=== PATIENT | male | born 1940 | race Caucasian/White ===

== ENCOUNTER 2020-01-22 09:29 | Inpatient (IN) | payer MEDICARE, OTHER ==
[~2020-01-22] VITALS: Ht 175.3 cm; Wt 86.2 kg
[2020-01-22] VITALS (40 sets, daily range): BP systolic 74–133; BP diastolic 41–89
--- NOTE | 2020-01-22 09:29 | NUR ---
PT BIB PRIVATE AMBULANCE FROM [facility] FOR FURTHER EVALUATION OF A "MASS IN THE LUNG AND R/O COVID 19. PT PLACED IN ROOM 3 PER COVID PRECAUTIONS PER HOSITAL POLICIES. PT CAME WITH O2 VIA NC, SATTING 99%. PT BREATHING USING ABDOMINAL MUSCLES. PT NON-VERBAL, RESPONSIVE WITH PAIN FUL STIMULI.
[2020-01-22] MEDS ORDERED: IV NORMAL SALINE 500 ML BAG IV ONE (10:15)
[2020-01-22 10:18] LABS: EOSINOPHILS % (AUTO) 0.7 % (0.0-7.0); HEMOGLOBIN 12.8 g/dL (12.5-16.3); LYMPHOCYTES # (AUTO) 0.9 K/uL (20.0-40.0); LYMPHOCYTES % (AUTO) 25.3 % (20.5-51.5); MEAN CORPUSCULAR HGB CONC 33 g/dL (32.5-36.3); MEAN CORPUSCULAR VOLUME 91.4 fL (73.0-96.2); MONOCYTES # (AUTO) 0.2 K/uL (2.0-10.0); MONOCYTES % (AUTO) 6.1 % (0.0-11.0); NEUTROPHILS # (AUTO) 2.4 K/uL (1.8-8.9); NEUTROPHILS % (AUTO) 66.9 % (38.5-71.5); PLATELET COUNT (AUTO) 74 K/uL (152-348); RED BLOOD CELL COUNT(AUTO) 4.27 MIL/uL (4.06-5.63); WHITE BLOOD COUNT (AUTO) 3.5 K/uL (3.6-10.2)
[2020-01-22 10:22] LABS: CREATININE 1.1 mg/dL (0.6-1.3); POTASSIUM 4.1 mmol/L (3.5-5.1)
[2020-01-22 10:33] LABS: BILIRUBIN,DIRECT 0.4 mg/dL (0.0-0.2); BILIRUBIN,TOTAL 1.1 mg/dL (0.2-1.0); TOTAL PROTEIN, SERUM 6.7 g/dL (6.4-8.2)
[2020-01-22 10:42] LABS: BAND % (MANUAL) 3 % (0-10); LYMPHOCYTES % (MANUAL) 24 % (20-40); MONOCYTES % (MANUAL) 6 % (2-10); NEUTROPHILS % (MANUAL) 67 % (42-75)
[2020-01-22] MEDS ORDERED: CEFTRIAXONE 1 G in IV DEXTROSE 5% 50 ML IV ONE (11:00)
[2020-01-22] MEDS ORDERED: AZITHROMYCIN IV 500 MG in IV DEXTROSE 5% 250 ML IV ONE (11:00)
[2020-01-22] MEDS ORDERED: ASPIRIN 300 MG RECTAL SUPP RC ONE ×2 (11:00→11:08)
[2020-01-22] MEDS ORDERED: AZITHROMYCIN 500MG/ D5W 250ML IVPB **ER PYXIS ONLY IV ONE (11:03)
[2020-01-22] MEDS ORDERED: CEFTRIAXONE /D5W 50ML IVPB **ER PYXIS IV ONE (11:04)
[2020-01-22 11:40] LABS: *BILIRUBIN,URIN NEGATIVE (NEGATIVE); *BLOOD, URINE 1+ (NEGATIVE); *CLARITY,URINE SLIGHTLY CLOUDY (CLEAR); *COLOR,URINE YELLOW (YELLOW); *KETONES,URINE NEGATIVE (NEGATIVE); LEUKOCYTE ESTERASE ,URINE NEGATIVE (NEGATIVE); NITRITE, URINE NEGATIVE (NEGATIVE); PH,URINE 5.5 (5.0-8.0); UGLUCOSE NEGATIVE (NEGATIVE)
[2020-01-22] MEDS: HYDROXYCHLOROQUINE SULFATE 200 MG TABLET PO SCH ×3 (11:45→17:36)
[2020-01-22] MEDS ORDERED: ACETAMINOPHEN 325 MG TABLET PO PRN (11:45)
[2020-01-22] MEDS ORDERED: ONDANSETRON 4 MG/2 ML VIAL IV PRN (11:45)
[2020-01-22 11:55] LABS: WBC,URINE 0-3 /HPF (0-3)
[2020-01-22 11:59] LABS: SQUAMOUS EPITHELIAL CELL,UR MODERATE /HPF (NONE SEEN)
[2020-01-22 12:02] LABS: MUCUS,URINE FEW /LPF (0-FEW)
--- NOTE | 2020-01-22 12:05 | NUR ---
transfered the pt to ccu per covid protocol.
[2020-01-22 12:07] LABS: BACTERIA,URINE NONE SEEN /HPF (NONE SEEN)
--- NOTE | 2020-01-22 12:18 | NUR ---
Patient in from E.R. to ccu room 2. Patient in with HR of 115, saturation on room air of 88%. pt. placed on 2LNC. sbp 118/85. RR of 18-25. temp of 98.9
--- NOTE | 2020-01-22 13:20 | NUR ---
PT ORALLY INTUBATED BY DR. BRIGHT WITH A SIZE 7.5 ETT WITHOUT COMPLICATION. ETT SECURED WITH ANCHOR-FAST APPROX. 25 CM AT THE LIP. PPE USED. PT PLACED ON A ERICKSON VENT. VENT SETTINGS GIVEN BY DR. BRIGHT OF A/C 28, 450, PEEP +10, AND 100% FIO2. VENT CHANGES MADE POST ABG RESULTS PER DR. BRIGHT, PT IS CURRENTLY ON A/C 24, 450, PEEP +10, AND 60% FIO2. PT IS TOLERATING VENT SETTINGS WELL, NO RESP. DISTRESS NOTED. BVM AT BEDSIDE. VENT PLUGGED INTO RED OUTLET. SPUTUM SPECIMEN COLLECTED. WILL CONTINUE TO MONITOR.
[2020-01-22] MEDS ORDERED: PROPOFOL 100 ML ONE (13:25)
[2020-01-22] MEDS ORDERED: NOREPINEPHRINE BITARTRATE 8 MG in IV NORMAL SALINE 242 ML IV PRN ×2 (13:30→14:00)
[2020-01-22] MEDS ORDERED: PHENYLEPHRINE IV 50 MG in IV NORMAL SALINE 245 ML IV PRN ×4 (13:30)
[2020-01-22] MEDS: NOREPINEPHRINE BITARTRATE 8 MG in IV NORMAL SALINE 242 ML IV PRN (13:39)
[2020-01-22 13:40] LABS: THYROID STIMULATING HORMONE 1.376 mIU/mL (0.358-3.740)
[2020-01-22 13:49] LABS: ABG BASE EXCESS -0.6 mmol/L; ABG PH 7.484 (7.350-7.450); ABG PO2 252.6 mmHg (75.0-100.0); ABG SITE LEFT RADIAL; ABG TOTAL HEMOGLOBIN 11.8 G/dL (13.5-18.0); MetHb 0.2 % (0.0-1.5); O2Hb 98.7 % (94.0-97.0); VENT MODE VENT - A/C; VT, ABG 450 mL
[2020-01-22] MEDS ORDERED: PROPOFOL 100 ML IV PRN (14:00)
--- NOTE | 2020-01-22 14:10 | NUR ---
A call to radiology to follow up with NG tube placement reading results. the undersignee spoke with ( Ilana/Ravi) who stated will call radiologist and will call. Awaiting NG tub placement.
[2020-01-22] MEDS ORDERED: JEVITY 1.2 1000 ML LIQUID NG PRN (14:30)
--- NOTE | 2020-01-22 14:30 | NUR ---
At 1320 with intubation team at bedside, patient intubated by DR. Herman Clark. Patient intubated ETT size 7.5 LL25, initial vent settings of A/C 24, tv 450, 100% FIO2 PEEP of 10. to be follow up by ABShreyas wang an hour. Propofol drip started and titrated with Dr's orders and left running at 75mcg/g/min. Pt's sbp down and started on levophed as ordered. NG tube to right nares at this time as well. AT 1340 Central line to right femoral inserted by Dr. Sutton as well . Awaiting for X-ray results for NG placement. Addendum: 01/22/20 at 1540 by NOVA GUTIERREZ RN Initial vent rate of A/C 28 follow up with and ABG 20 min. post intubation vent setting changed to A/C 24, 450 tv, Peep 10 and 60% FIO2.
[2020-01-22] MEDS: PROPOFOL 100 ML IV PRN ×3 (15:07→21:08)
--- NOTE | 2020-01-22 15:42 | NUR ---
2nd call to radiology dept. for NG placement reading, at this time spoke with Tobin awaiting reading results.
[2020-01-22] MEDS: IV D5 1/2 NS 1000 ML 1,000 ML IV PRN (17:21)
[2020-01-22 17:43] LABS: ABG BASE EXCESS 3.4 mmol/L; ABG HCO3 28.5 mmol/L; ABG PCO2 45.6 mmHg (35.0-45.0); ABG PH 7.414 (7.350-7.450); ABG PO2 211.8 mmHg (75.0-100.0); ABG SITE LEFT BRACHIAL; ABG TOTAL HEMOGLOBIN 12.7 G/dL (13.5-18.0); COHb 1.3 % (0.5-1.5); MetHb 0.2 % (0.0-1.5); O2Hb 98.4 % (94.0-97.0); VENT MODE VENT - A/C; VT, ABG 450 mL
--- NOTE | 2020-01-22 18:06 | NUR ---
Vent: setting changed to A/C 24, TV 450, FIO2 40%, PEEP +10. post 2nd ABG results notified to attending physician.
--- NOTE | 2020-01-22 18:20 | NUR ---
A call to pulmonary services, and report given to Dr. Bautista currently fuel verification technician for Dr. Cisneros. orders to titrate fio2 to maintain saturation above 94% received.
--- NOTE | 2020-01-22 19:19 | NUR ---
A 2nd call from Pt's daughter Ms. Ferrer she was briefly updated of pt's care plan, and her phone number given to Attending Dr. Sutton who was informed to call and update her of care plan.
[2020-01-22] MEDS ORDERED: SUCCINYLCHOLINE CHLORIDE 200 MG/10 ML VIAL IV ONE (19:30)
[2020-01-22] MEDS ORDERED: ETOMIDATE 20 MG/10 ML VIAL IV ONE (19:30)
--- NOTE | 2020-01-22 19:30 | NUR ---
Report received. Patient admitted today from [facility] DX: COVID-19. S/P intubation and to mechanical ventilator with settings: AC=24, FIO2=40%, PEEP=10 and TV=270xg. Sat above 96%. Sedated with Diprivan drip at 75 mcg/kg/min via R femoral TLC. On contact+droplet isolation. On Levophed rip for BP support. Assessment done. Addendum: 01/22/20 at 2306 by VALERI JEWELL RN Amended: Links added. Addendum: 01/22/20 at 2316 by VALERI JEWELL RN Amended: Links added. Addendum: 01/22/20 at 2316 by VALERI JEWELL RN Amended: Links added. Addendum: 01/22/20 at 2316 by VALERI JEWELL RN Amended: Links added. Addendum: 01/22/20 at 2316 by VALERI JEWELL RN Amended: Links added. Addendum: 01/22/20 at 2317 by VALERI JEWELL RN Amended: Links added. Addendum: 01/22/20 at 2318 by VALERI JEWELL RN Amended: Links added. Addendum: 01/22/20 at 2318 by VALERI JEWELL RN Amended: Links added. Addendum: 01/22/20 at 2318 by VALERI JEWELL RN Amended: Links added.
--- NOTE | 2020-01-22 21:00 | NUR ---
Morphine order received from Dr. Clark. Patient with occasional grimacing and bucking the vent. Qsux=550.3 orally. Medicated with Tylenol via NGT and Morphine IV. Cooling measures initiated. Addendum: 01/22/20 at 2316 by VALERI JEWELL RN Amended: Links added. Addendum: 01/22/20 at 2317 by VALERI JEWELL RN Amended: Links added. Addendum: 01/22/20 at 2317 by VALERI JEWELL RN Amended: Links added. Addendum: 01/22/20 at 2316 by VALERI JEWELL RN Amended: Links added. Addendum: 01/22/20 at 2316 by VALERI JEWELL RN Amended: Links added. Addendum: 01/22/20 at 8 by VALERI JEWELL RN Amended: Links added. Addendum: 01/22/20 at 2317 by VALERI JEWELL RN Amended: Links added. Addendum: 01/22/20 at 2317 by VALERI JEWELL RN Amended: Links added.
[2020-01-22] MEDS: ACETAMINOPHEN 650 MG/20.3 ML LIQUID UDC NG PRN (21:09)
[2020-01-22] MEDS: MORPHINE SULFATE 4 MG/1 ML DISP.SYRIN IV PRN (21:12)
[2020-01-23] VITALS (96 sets, daily range): BP systolic 73–129; BP diastolic 43–71
--- NOTE | 2020-01-23 00:30 | NUR ---
Bath and am care given. Patient agitated, tachypneic and tachycardic during care. Medicated with Morphine IV. Diprivan and Levophed drips titrated. Addendum: 01/23/20 at 0143 by VALERI JEWELL RN Amended: Links added.
[2020-01-23] MEDS: PROPOFOL 100 ML IV PRN ×8 (00:32→21:10)
[2020-01-23] MEDS: MORPHINE SULFATE 4 MG/1 ML DISP.SYRIN IV PRN (00:41)
[2020-01-23] MEDS: Z GUARD REMEDY PASTE 57 GM TUBE TOP PRN (02:25)
--- NOTE | 2020-01-23 03:00 | NUR ---
Ivkd=613.6. Cooling measures. Tylenol given vis NGT. Will monitor.
[2020-01-23] MEDS: NOREPINEPHRINE BITARTRATE 8 MG in IV NORMAL SALINE 242 ML IV PRN (03:03)
[2020-01-23] MEDS: ACETAMINOPHEN 650 MG/20.3 ML LIQUID UDC NG PRN ×2 (03:09→11:25)
[2020-01-23] MEDS: OSMOLITE 1.2 CAL 1,000 ML LIQUID GT PRN ×2 (04:00→10:21)
[2020-01-23 04:50] LABS: BASOPHILS # (AUTO) 0.1 K/uL (0.0-8.0); BASOPHILS % (AUTO) 0.7 % (0.0-2.0); EOSINOPHILS % (AUTO) 0.4 % (0.0-7.0); HEMATOCRIT 37.6 % (36.7-47.1); HEMOGLOBIN 12.3 g/dL (12.5-16.3); LYMPHOCYTES # (AUTO) 1.7 K/uL (20.0-40.0); LYMPHOCYTES % (AUTO) 21.7 % (20.5-51.5); MEAN CORPUSCULAR HEMOGLOBIN 30.2 uug (23.8-33.4); MEAN CORPUSCULAR HGB CONC 33 g/dL (32.5-36.3); MEAN CORPUSCULAR VOLUME 91.9 fL (73.0-96.2); MONOCYTES # (AUTO) 0.6 K/uL (2.0-10.0); MONOCYTES % (AUTO) 7.2 % (0.0-11.0); NEUTROPHILS # (AUTO) 5.6 K/uL (1.8-8.9); PLATELET COUNT (AUTO) 130 K/uL (152-348); RED BLOOD CELL COUNT(AUTO) 4.09 MIL/uL (4.06-5.63); WHITE BLOOD COUNT (AUTO) 8.1 K/uL (3.6-10.2)
[2020-01-23 05:12] LABS: ALANINE AMINOTRANSFERASE 139 U/L (16-63); ALKALINE PHOSPHATASE 104 U/L (50-136); ASPARTATE AMINOTRANSFERASE 123 U/L (15-37); BILIRUBIN,TOTAL 1.2 mg/dL (0.2-1.0); CARBON DIOXIDE 28 mmol/L (21-32); CHLORIDE 110 mmol/L (98-107); CHOLESTEROL 136 mg/dL (<200); CREATININE 2.7 mg/dL (0.6-1.3); FERRITIN 860 ng/mL (26-388); GLUCOSE 172 mg/dL (74-106); HDL CHOLESTEROL 19 mg/dL (40-60); MAGNESIUM 2.5 mg/dL (1.8-2.4); PHOSPHOROUS 5.7 mg/dL (2.5-4.9); POTASSIUM 4.7 mmol/L (3.5-5.1); TOTAL PROTEIN, SERUM 6.5 g/dL (6.4-8.2); TRIGLYCERIDES 158 MG/DL (30-150); UREA NITROGEN, BLOOD 52 mg/dL (7-18)
[2020-01-23] MEDS: HYDROXYCHLOROQUINE SULFATE 200 MG TABLET PO SCH (05:28)
[2020-01-23] MEDS: IV D5 1/2 NS 1000 ML 1,000 ML IV PRN ×2 (05:28→17:16)
--- NOTE | 2020-01-23 07:00 | NUR ---
Remains on Levophed and Diprivan drips. Saturations above 96% on same vent settings. Isolation for COVID-19 maintained. Addendum: 01/23/20 at 0724 by VALERI JEWELL RN Amended: Links added.
--- NOTE | 2020-01-23 10:10 | NUR ---
Pulmonary services, Dr. Cisneros in the unit to see and examine patient, full report given see order hx.
[2020-01-23] MEDS: HEPARIN SODIUM,PORCINE 5,000 UNITS/ML VIAL SQ SCH ×2 (10:40→21:10)
[2020-01-23] MEDS: FAMOTIDINE. 20 MG/2 ML VIAL IV SCH (10:40)
[2020-01-23] MEDS ORDERED: LORAZEPAM 2 MG/1 ML VIAL IV PRN (11:15)
[2020-01-23] MEDS ORDERED: AZITHROMYCIN 250 MG TABLET PO SCH (11:45)
[2020-01-23] MEDS: AZITHROMYCIN 250 MG TABLET PO SCH (11:57)
[2020-01-23] MEDS: PROTEIN SUPPLEMENT (PROSTAT) 30 ML LIQUID PO SCH ×2 (11:58→16:00)
--- NOTE | 2020-01-23 12:44 | NUR ---
A call from one of the daughters to be updated of pt's condition and care plan. At this time Dr. Jones was called to be notified to give them a call and discussed care plan as requested by Ms. Hansen.
--- NOTE | 2020-01-23 15:52 | NUR ---
A call to attending to notify malfunction of NG-T. and as recommended tube pull back about 3-5cm since x-ray results this morning show ett tip been in the stomach. but 20 minutes later malfunctioning continue. Md call to be notified awaiting call back.
[2020-01-23] MEDS ORDERED: TOCILIZUMAB 400 MG in IV NORMAL SALINE 80 ML IV ONE (16:15)
--- NOTE | 2020-01-23 16:24 | NUR ---
Pt received orally intubated with a 7.5 ETtube, ~25cm lipline. He is sedated and in stable condition on ordered vent settings of AC 24, Vt 450, Peep +10, @ 40% FiO2. Airway is patent and secured with anchorfast. Tube locations changed througout shift to prevent abrasions. Alarm parameters checked and are on/audible. Ambu bag at bedside. PPE used for Positive Covid-19 results.Will continue to monitor.
--- NOTE | 2020-01-23 16:30 | NUR ---
Due to high residual TF off at this time. Attending notified. Addendum: 01/23/20 at 1650 by NOVA GUTIERREZ RN residuals of 250cc mix of greenish and stomach fluid.
[2020-01-23] MEDS: HYDROXYCHLOROQUINE 200 MG/8 ML SUSPENSION NG SCH (17:04)
[2020-01-23 17:36] LABS: *BILIRUBIN,URIN 2+ (NEGATIVE); *CLARITY,URINE TURBID (CLEAR); *COLOR,URINE Brown (YELLOW); *KETONES,URINE NEGATIVE (NEGATIVE); LEUKOCYTE ESTERASE ,URINE NEGATIVE (NEGATIVE); NITRITE, URINE NEGATIVE (NEGATIVE); UGLUCOSE NEGATIVE (NEGATIVE)
[2020-01-23 17:48] LABS: *BLOOD, URINE 1+ (NEGATIVE)
[2020-01-23 17:49] LABS: SQUAMOUS EPITHELIAL CELL,UR FEW /HPF (NONE SEEN); WBC,URINE 0-3 /HPF (0-3)
[2020-01-23 17:50] LABS: MUCUS,URINE MODERATE /LPF (0-FEW); URINE AMORPHOUS URATE MANY /HPF
[2020-01-23 18:00] LABS: *URINE TOTAL PROTEIN RANDOM 234.7 mg/dL (<150/24HR)
[2020-01-23] MEDS ORDERED: HYDROXYCHLOROQUINE SULFATE 200 MG TABLET PO SCH (18:00)
--- NOTE | 2020-01-23 18:32 | NUR ---
Attending physician Robert Ayala in the unit to see and examine patient, full report given. Orders to continue with care plan received.
--- NOTE | 2020-01-23 19:00 | NUR ---
Pt received orally intubated with a 7.5 ET tube, secured at 25cm lip line via anchor fast. Vent settings of AC 24, Vt 450, Peep +10, Fio2 at 40%. Tube locations changed throughout shift to prevent abrasions. Vent checked, Alarms working well and audible. Ambu bag at bedside. PPE used for Positive Covid-19 results.Will continue to monitor.
--- NOTE | 2020-01-23 19:45 | NUR ---
rounds made patient in bed ,orally intubated on ac of 24 tv fio2 40% peep 10,sedated on propofol drip when off sedation ( sedation vacation ) patient open eyes and moved head form side to side and moved extremities but doesn't follow commands. back on sedation of 75 mcg/kg/min .Levophed drip in progress for bp support to keep sbp >90 mm/hg.continue to monitor bp q15 minutes . f/c to bsd . off tube feeding c/o high residual >250 ML at per day shift RN AWARE .continue to monitor v/s and levels of comfort and to conatinue to observed special droplet/contact ISOLATION + COVID .
--- NOTE | 2020-01-23 22:00 | NUR ---
turned and reposition patient ,suction via ett and via mouth , hob up . continue to monitor v/s and levels of comfort .
[2020-01-24] VITALS (94 sets, daily range): BP systolic 81–124; BP diastolic 42–82
[2020-01-24] MEDS: PROPOFOL 100 ML IV PRN ×8 (00:04→21:17)
--- NOTE | 2020-01-24 04:00 | NUR ---
am care done changed soiled linens and gown . oral care and f/c done turned and reposition patient .am labs collected .
[2020-01-24 04:44] LABS: BASOPHILS % (AUTO) 0.8 % (0.0-2.0); EOSINOPHILS # (AUTO) 0.1 K/uL (0.0-0.7); EOSINOPHILS % (AUTO) 1.5 % (0.0-7.0); HEMATOCRIT 31.3 % (36.7-47.1); HEMOGLOBIN 10.3 g/dL (12.5-16.3); LYMPHOCYTES # (AUTO) 0.8 K/uL (20.0-40.0); LYMPHOCYTES % (AUTO) 16.2 % (20.5-51.5); MEAN CORPUSCULAR HEMOGLOBIN 30.3 uug (23.8-33.4); MEAN CORPUSCULAR HGB CONC 33 g/dL (32.5-36.3); MEAN CORPUSCULAR VOLUME 92.3 fL (73.0-96.2); MONOCYTES # (AUTO) 0.4 K/uL (2.0-10.0); MONOCYTES % (AUTO) 7.4 % (0.0-11.0); NEUTROPHILS # (AUTO) 3.7 K/uL (1.8-8.9); NEUTROPHILS % (AUTO) 74.1 % (38.5-71.5); PLATELET COUNT (AUTO) 81 K/uL (152-348); RED BLOOD CELL COUNT(AUTO) 3.39 MIL/uL (4.06-5.63)
[2020-01-24 05:12] LABS: ALANINE AMINOTRANSFERASE 88 U/L (16-63); ALKALINE PHOSPHATASE 87 U/L (50-136); ASPARTATE AMINOTRANSFERASE 75 U/L (15-37); BILIRUBIN,TOTAL 1.1 mg/dL (0.2-1.0); CARBON DIOXIDE 26 mmol/L (21-32); CHLORIDE 107 mmol/L (98-107); CREATININE 5.1 mg/dL (0.6-1.3); FERRITIN 577 ng/mL (26-388); GLUCOSE 120 mg/dL (74-106); MAGNESIUM 2.3 mg/dL (1.8-2.4); PHOSPHOROUS 6.9 mg/dL (2.5-4.9); POTASSIUM 4.8 mmol/L (3.5-5.1); TOTAL PROTEIN, SERUM 5.7 g/dL (6.4-8.2); UREA NITROGEN, BLOOD 71 mg/dL (7-18)
[2020-01-24] MEDS: IV D5 1/2 NS 1000 ML 1,000 ML IV PRN ×2 (06:18→17:49)
[2020-01-24] MEDS: HYDROXYCHLOROQUINE 200 MG/8 ML SUSPENSION NG SCH ×3 (06:20→17:39)
[2020-01-24 06:23] LABS: LYMPHOCYTES % (MANUAL) 23 % (20-40); MONOCYTES % (MANUAL) 4 % (2-10); NEUTROPHILS % (MANUAL) 73 % (42-75)
--- NOTE | 2020-01-24 07:30 | NUR ---
recieved pt lying in bed with hob up 35degrees. pt is sedated on propofol drip at 70mcg/.kg/min via right femoral line.
--- NOTE | 2020-01-24 08:00 | NUR ---
HR IS SR-SR WITH OCCASSIONAL PAC'S. ON LEVOPHED DRIP RUNNING TO MAIINTAIN BP, MAIN IVF IS INFUSING WELL. TEMP IS 99.7F. ETT INTACT AND CONNECTED TO MECHANICAL VENT WITH A SETTING OF 24, FIO2-40%,VT-459 WITH A PEEP OF 10. SATURATION IS 100%. VERY MINIMAL SECRETIONS. FOLEYCATHETER INTACT, URINE OUTPUT IS SCANTY AND VERY CONCENTRATED CAIN. IS AWARE.
[2020-01-24 08:24] LABS: ABG BASE EXCESS -5.9 mmol/L; ABG HCO3 19.7 mmol/L; ABG PCO2 39.2 mmHg (35.0-45.0); ABG PH 7.319 (7.350-7.450); ABG PO2 158.8 mmHg (75.0-100.0); ABG SITE LEFT BRACHIAL; ABG TOTAL HEMOGLOBIN 9.5 G/dL (13.5-18.0); COHb 0.5 % (0.5-1.5); O2Hb 98.9 % (94.0-97.0); VENT MODE VENT - A/C; VT, ABG 450 mL
[2020-01-24] MEDS: FAMOTIDINE. 20 MG/2 ML VIAL IV SCH (08:26)
[2020-01-24] MEDS: PROTEIN SUPPLEMENT (PROSTAT) 30 ML LIQUID PO SCH ×3 (08:27→16:25)
--- NOTE | 2020-01-24 08:39 | NUR ---
PT RECEIVED ON VENT WITH SETTINGS ON AC24/VT450/40%/+10 PEEP. 7.5 ETT PROPERLY SECURED AND AIRWAY PATENT. VENT ALARMS SET AND AUDIBLE. ABG DONE. RESULTS NON CRITICAL AND VIEWABLE ON [employer]. WILL CONTINUE T MONITOR.
[2020-01-24] MEDS ORDERED: HEPARIN SODIUM,PORCINE 5,000 UNITS/ML VIAL SQ SCH (09:00)
[2020-01-24] MEDS ORDERED: ASPIRIN 81 MG TAB.CHEW NG SCH ×2 (09:00)
--- NOTE | 2020-01-24 09:00 | NUR ---
SEEN AND EXAMINED BY DR TRINIDAD WITH NEW ORDERS.
[2020-01-24 09:11] LABS: HEPATITIS A AB, IgM Negative (Negative); HEPATITIS B SURFACE AG Negative (Negative)
--- NOTE | 2020-01-24 10:00 | NUR ---
NGT INTACT, JEVITY TUBE FEEDING STARTED AT 20ML/HR. NO RESIDUALS NOTED. NO BM NOTED. BOWEL SOUND IS PRESENT.
--- NOTE | 2020-01-24 10:18 | NUR ---
0945 VENT SETTING CHANGES MADE. FIO2 35% AND PEEP TO 8
[2020-01-24] MEDS ORDERED: BUMETANIDE INJ 8 MG in IV DEXTROSE 5% 48 ML IV ONE (10:30)
--- NOTE | 2020-01-24 11:29 | NUR ---
1113 VENT SETTING CHANGES MADE. FIO2 30% AND PEEP TO 5
--- NOTE | 2020-01-24 12:00 | NUR ---
SEEN AND EXAMINED BY DR OSBORNE WITH NEW ORDERS. BUMEX DRIP STARTED AT ML/HR.
[2020-01-24] MEDS: AZITHROMYCIN 250 MG TABLET PO SCH (12:49)
[2020-01-24] MEDS: ACETAMINOPHEN 650 MG/20.3 ML LIQUID UDC NG PRN ×2 (12:49→17:11)
--- NOTE | 2020-01-24 16:00 | NUR ---
PM CARE RENDERED. NO CHANGE IN STATUS. PEEP DOWN TO 5 TOLERATED WELL. ORAL CARE DONE. TEMP IS 100.4F. MEDICATED WITH TYLENOL 650MG VIA NGT. NO APPARENT DISTRESS NOTED.
--- NOTE | 2020-01-24 17:08 | NUR ---
1707 FIO2 TITRATED DOWN TO 28% AND PEEP TO 5 Addendum: 01/24/20 at 1709 by CHRISTIAN VALLE RT 1707 FIO2 TITRATED DOWN TO 28%
[2020-01-24] MEDS: NOREPINEPHRINE BITARTRATE 8 MG in IV NORMAL SALINE 242 ML IV PRN ×2 (17:50→21:18)
[2020-01-24] MEDS: OSMOLITE 1.2 CAL 1,000 ML LIQUID GT PRN (17:53)
--- NOTE | 2020-01-24 20:00 | NUR ---
rounds made patient in ac 24/450/28% peep of 5 ,suction via ett very minimal secretions,oral care done . sedated on propofol when off sedation patient moved but very slow and doesn't follow commands facial grimace noted ,back on sedation . Levophed drip in progress at 0.02mcg/kg/min for bp support to keep sbp >90 mm/hg .f/c to bsd continue to monitor i and o and patient on bumex drip . continue to monitor v/s and levels of comfort .
--- NOTE | 2020-01-24 21:30 | NUR ---
turned and reposition patient offloaded back with pillows , hob up and elevated upper and lower extremities .
[2020-01-25] VITALS (48 sets, daily range): BP systolic 101–142; BP diastolic 45–90
[2020-01-25] MEDS: PROPOFOL 100 ML IV PRN ×6 (00:38→22:12)
[2020-01-25] MEDS: MORPHINE SULFATE 4 MG/1 ML DISP.SYRIN IV PRN (02:58)
--- NOTE | 2020-01-25 04:00 | NUR ---
am care done ,bath patient changed soiled linens and gown .noted left buttocks redness DTI ,applied z guard with hydrogel and cover with Mepilex placed wound care consult .turned and reposition .
[2020-01-25 05:11] LABS: CARBON DIOXIDE 21 mmol/L (21-32); CHLORIDE 103 mmol/L (98-107); CREATININE 6.9 mg/dL (0.6-1.3); GLUCOSE 109 mg/dL (74-106); MAGNESIUM 2.1 mg/dL (1.8-2.4); POTASSIUM 5.1 mmol/L (3.5-5.1)
[2020-01-25 05:18] LABS: BASOPHILS % (AUTO) 0.7 % (0.0-2.0); EOSINOPHILS # (AUTO) 0.1 K/uL (0.0-0.7); EOSINOPHILS % (AUTO) 2.1 % (0.0-7.0); HEMATOCRIT 28.9 % (36.7-47.1); HEMOGLOBIN 9.8 g/dL (12.5-16.3); LYMPHOCYTES # (AUTO) 0.7 K/uL (20.0-40.0); LYMPHOCYTES % (AUTO) 12.8 % (20.5-51.5); MEAN CORPUSCULAR HEMOGLOBIN 31.3 uug (23.8-33.4); MEAN CORPUSCULAR HGB CONC 34 g/dL (32.5-36.3); MEAN CORPUSCULAR VOLUME 92.2 fL (73.0-96.2); MONOCYTES # (AUTO) 0.3 K/uL (2.0-10.0); MONOCYTES % (AUTO) 5.4 % (0.0-11.0); NEUTROPHILS # (AUTO) 4.2 K/uL (1.8-8.9); PLATELET COUNT (AUTO) 75 K/uL (152-348); RED BLOOD CELL COUNT(AUTO) 3.14 MIL/uL (4.06-5.63); WHITE BLOOD COUNT (AUTO) 5.3 K/uL (3.6-10.2)
[2020-01-25] MEDS: HYDROXYCHLOROQUINE 200 MG/8 ML SUSPENSION NG SCH ×2 (05:19→17:00)
[2020-01-25 05:25] LABS: UREA NITROGEN, BLOOD 89 mg/dL (7-18)
[2020-01-25 06:05] LABS: EOSINOPHILS % (MANUAL) 1 % (0-8); LYMPHOCYTES % (MANUAL) 14 % (20-40); MONOCYTES % (MANUAL) 3 % (2-10); NEUTROPHILS % (MANUAL) 81 % (42-75)
[2020-01-25] MEDS: PROTEIN SUPPLEMENT (PROSTAT) 30 ML LIQUID PO SCH ×3 (07:53→17:00)
[2020-01-25] MEDS: FAMOTIDINE. 20 MG/2 ML VIAL IV SCH (07:53)
[2020-01-25] MEDS: IV D5 1/2 NS 1000 ML 1,000 ML IV PRN ×2 (08:09→22:12)
[2020-01-25 09:13] LABS: ABG BASE EXCESS -6.5 mmol/L; ABG HCO3 19.3 mmol/L; ABG PCO2 39.5 mmHg (35.0-45.0); ABG PH 7.306 (7.350-7.450); ABG PO2 103.8 mmHg (75.0-100.0); ABG SITE RIGHT RADIAL; ABG TOTAL HEMOGLOBIN 11.3 G/dL (13.5-18.0); COHb 1.1 % (0.5-1.5); MetHb 0.4 % (0.0-1.5); O2Hb 96.7 % (94.0-97.0); VENT MODE VENT - A/C; VT, ABG 450 mL
--- NOTE | 2020-01-25 10:30 | NUR ---
DOCTOR VARGAS IN THE UNIT. SPOKE TO DOCTOR LUGO AND HE WILL SPEAK TO DAUGHTER TODAY REGARDING DIALYSIS INSERTION.
--- NOTE | 2020-01-25 11:00 | NUR ---
WOUND CARE NURSE IN THE UNIT TO EVALUATE PATIENT.
--- NOTE | 2020-01-25 11:10 | NUR ---
WOUND CARE CONSULT: REVIEWED NURSING DOCUMENTATION INCLUDING PHOTO WHICH SHOWS LEFT BUTTOCK DISCOLORATION. RECOMMENDATIONS MADE FOR SKIN PROTECTION. DISCUSSED WITH NURSING STAFF. PT ON FIRST STEP [facility]. WILL SEE PRN. [place]FIELD IN AGREEMENT WITH PLAN OF CARE. Addendum: 01/25/20 at 1114 by ARRON ATKINSON RN Amended: Links added.
--- NOTE | 2020-01-25 13:00 | NUR ---
DOCTOR NATE IN THE UNIT.
[2020-01-25] MEDS: AZITHROMYCIN 250 MG TABLET PO SCH (13:45)
--- NOTE | 2020-01-25 15:00 | NUR ---
JUDEEN IN THE UNIT REVIEWING PATIENT.
--- NOTE | 2020-01-25 19:45 | NUR ---
rounds made patient in bed ,orally intubated on ac 24/450/28% peep 5 ,sedated on propofol . very minimal /small secretion patricia to becker color . hob , when off sedation facial grimaces and withdraws to pain . moved extremities upper and lower extremities very slow and weak ,applied soft wrist restraints for safety .off Levophed drip continue to monitor v/s .NGT on Osmolite at 20 ml/hr continue to monitor flushed aspiration precaution observed.f/c to bsd oliguric aware for possible HD as per day RN .
--- NOTE | 2020-01-25 22:12 | NUR ---
Pt received orally intubated with 7.5 ETTube, 25cm @ lipline. Pt sedated and is on stable condition. Pt on Bustamante vent with settings of AC 24, 450 VT, +5 peep, FIO2 28%. Alarms checked and audible. Ambubag @ bedside. PPE used for positive covid isolation precautions. Pt received orally intubated with a 7.5 ETtube, ~25cm lipline. He is sedated and in stable condition on ordered vent settings of AC 24, Vt 450, Peep +10, @ 40% FiO2. Airway is patent and secured with anchorfast. Tube locations changed througout shift to prevent abrasions. Alarm parameters checked and are on/audible. Ambu bag at bedside. PPE used for Positive Covid-19 results.Will continue to monitor.
--- NOTE | 2020-01-25 22:30 | NUR ---
turned and reposition patient ,offloaded back /buttocks with pillows .bilateral heels off bed with pillows.suction patient very small secretions. oral care done .flushed NGT to tolerating tube feedings.
[2020-01-26] VITALS (34 sets, daily range): BP systolic 89–145; BP diastolic 48–82
[2020-01-26] MEDS: MORPHINE SULFATE 4 MG/1 ML DISP.SYRIN IV PRN (00:25)
--- NOTE | 2020-01-26 00:36 | NUR ---
given prn morphine noted shallow breathing on the vent ac24 patient breathing 27 and deep . continue to monitor comfort level.
[2020-01-26] MEDS: PROPOFOL 100 ML IV PRN ×5 (03:18→21:19)
--- NOTE | 2020-01-26 04:15 | NUR ---
am labs collected and send, am care done bath patient ,applied z guard mixed with hydrogel to right and left buttocks and cover with Mepilex .oral care and f/c done turned and reposition
--- NOTE | 2020-01-26 05:00 | NUR ---
temp 100.3 orally given prn Tylenol via the ngt flushed ngt .
[2020-01-26] MEDS: HYDROXYCHLOROQUINE 200 MG/8 ML SUSPENSION NG SCH ×2 (05:04→17:10)
--- NOTE | 2020-01-26 05:14 | NUR ---
portable chest xray done by dietetic technician at b/s .
[2020-01-26] MEDS: ACETAMINOPHEN 650 MG/20.3 ML LIQUID UDC NG PRN ×3 (05:17→21:19)
[2020-01-26 05:26] LABS: BASOPHILS % (AUTO) 0.4 % (0.0-2.0); EOSINOPHILS % (AUTO) 0.6 % (0.0-7.0); HEMATOCRIT 29.6 % (36.7-47.1); HEMOGLOBIN 9.8 g/dL (12.5-16.3); LYMPHOCYTES # (AUTO) 0.7 K/uL (20.0-40.0); LYMPHOCYTES % (AUTO) 13.1 % (20.5-51.5); MEAN CORPUSCULAR HEMOGLOBIN 31.2 uug (23.8-33.4); MEAN CORPUSCULAR HGB CONC 33 g/dL (32.5-36.3); MEAN CORPUSCULAR VOLUME 93.7 fL (73.0-96.2); MONOCYTES # (AUTO) 0.4 K/uL (2.0-10.0); NEUTROPHILS # (AUTO) 4.4 K/uL (1.8-8.9); NEUTROPHILS % (AUTO) 78.9 % (38.5-71.5); RED BLOOD CELL COUNT(AUTO) 3.15 MIL/uL (4.06-5.63); WHITE BLOOD COUNT (AUTO) 5.5 K/uL (3.6-10.2)
[2020-01-26 05:32] LABS: PLATELET COUNT (AUTO) 87 K/uL (152-348)
[2020-01-26 05:39] LABS: CARBON DIOXIDE 20 mmol/L (21-32); CHLORIDE 106 mmol/L (98-107); GLUCOSE 125 mg/dL (74-106); MAGNESIUM 2.4 mg/dL (1.8-2.4)
[2020-01-26 05:46] LABS: POTASSIUM 6.3 mmol/L (3.5-5.1)
[2020-01-26 05:47] LABS: CREATININE 8.3 mg/dL (0.6-1.3); PHOSPHOROUS 11.9 mg/dL (2.5-4.9); UREA NITROGEN, BLOOD 100 mg/dL (7-18)
--- NOTE | 2020-01-26 06:09 | NUR ---
changed right femoral central line dressing done aseptically .
--- NOTE | 2020-01-26 06:15 | NUR ---
0615 called [facility] for abnormal labs no answer, 0645 called [facility] and spoked with IRAIDA DAWSON dictated chemistry results with orders for Kayexalate
[2020-01-26] MEDS ORDERED: SODIUM POLYSTYRENE SULFONATE 15 G/60 ML LIQUID UDC NG ONE (06:45)
[2020-01-26] MEDS: PROTEIN SUPPLEMENT (PROSTAT) 30 ML LIQUID PO SCH ×3 (08:01→17:10)
[2020-01-26] MEDS: FAMOTIDINE. 20 MG/2 ML VIAL IV SCH (08:01)
[2020-01-26] MEDS: OSMOLITE 1.2 CAL 1,000 ML LIQUID GT PRN (08:34)
[2020-01-26 09:30] LABS: ABG HCO3 17.7 mmol/L; ABG PCO2 46.5 mmHg (35.0-45.0); ABG PH 7.198 (7.350-7.450); ABG PO2 95.5 mmHg (75.0-100.0); ABG SITE RIGHT RADIAL; ABG TOTAL HEMOGLOBIN 10.9 G/dL (13.5-18.0); COHb 0.7 % (0.5-1.5); MetHb 0.2 % (0.0-1.5); O2Hb 95.7 % (94.0-97.0); VENT MODE VENT - A/C 24; VT, ABG 450 mL
[2020-01-26] MEDS: IV D5 1/2 NS 1000 ML 1,000 ML IV PRN (09:37)
--- NOTE | 2020-01-26 09:45 | NUR ---
PULMONARY SERVICES DR. TRINIDAD IN THE UNIT, FULL REPORT GIVEN. SEE ORDER HISTORY FOR NEW ORDERS. DR. TRINIDAD AT BEDSIDE ASSESSING PATIENT.
--- NOTE | 2020-01-26 09:50 | NUR ---
PT RHYTHM CHANGE EKG DONE STAT AND NOTIFIED DR. ANGEL. NEW ORDERS RECEIVED, SEE ORDER HISTORY FOR NEW ORDERS.
[2020-01-26] MEDS ORDERED: DEXTROSE 50% 50 ML DISP.SYRIN IV ONE (10:00)
[2020-01-26] MEDS ORDERED: SODIUM BICARBONATE 8.4% 50 MEQ/50 ML DISP.SYRIN IV ONE (10:00)
[2020-01-26] MEDS ORDERED: INSULIN REGULAR, HUMAN 300 UNIT/3 ML VIAL IV ONE (10:00)
[2020-01-26] MEDS ORDERED: CALCIUM GLUCONATE IV 1 GM in IV NORMAL SALINE 100 ML IV ONE (10:00)
--- NOTE | 2020-01-26 10:15 | NUR ---
CARDIOLOGY SERVICES DR. SULLIVAN IN THE UNIT, FULL REPORT GIVEN. SEE ORDER HISTORY FRO NEW ORDERS.
[2020-01-26] MEDS: SODIUM BICARBONATE 8.4% 100 MEQ in IV D5 1/2 NS 1000 ML 1,000 ML IV PRN ×2 (11:13→22:11)
[2020-01-26] MEDS: AZITHROMYCIN 250 MG TABLET PO SCH (12:19)
--- NOTE | 2020-01-26 13:00 | NUR ---
DR. SANCHEZ IN THE UNIT. DR SANCHEZ AT BEDSIDE IMPLANTING A TEMPORARY DIALYSIS CATHETER. TIME OUT DONE. DIALYSIS CATHETER PLACED ON LEFT GROIN. NO SIGNS OF COMPLICATION OR BLEEDING.
--- NOTE | 2020-01-26 14:30 | NUR ---
SENIOR APPLICATIONS ARCHITECT IN THE UNIT. PERFORMING DIALYSIS AT THE BEDSIDE.
[2020-01-26] MEDS: NOREPINEPHRINE BITARTRATE 8 MG in IV NORMAL SALINE 242 ML IV PRN (16:01)
--- NOTE | 2020-01-26 17:30 | NUR ---
DIALYSIS FINISHED 1500 OUT. PT PLACED BACK BACK ON LEVO BP RUNNING LOW 80'S. OTHERWISE NO OTHER COMPLICATIONS DURING HEMODIALYSIS.
[2020-01-26] MEDS ORDERED: METOCLOPRAMIDE HCL 10 MG/2 ML VIAL IV SCH (18:15)
[2020-01-26] MEDS: METOCLOPRAMIDE HCL 10 MG/2 ML VIAL IV SCH ×2 (18:27→21:58)
--- NOTE | 2020-01-26 21:11 | NUR ---
lab works is continuously being monitored everyday and being corrected when necessary , hd done today Addendum: 01/26/20 at 2110 by BLAIR TARANGO RN Amended: Keyona added. Addendum: 01/26/20 at 2112 by BLAIR TARANGO RN Amended: Keyona added. Addendum: 01/26/20 at 2113 by BLAIR TARANGO RN Amended: Links added.
--- NOTE | 2020-01-26 21:12 | NUR ---
temperature being monitored and being medicated for tmeperature > 100.0, cool bath given when necessary Addendum: 01/26/20 at 2112 by BLAIR TARANGO RN Amended: Links added. Addendum: 01/26/20 at 2113 by BLAIR TARANGO RN Amended: Links added.
--- NOTE | 2020-01-26 21:14 | NUR ---
levophed at 0.01 mcg was turned off , vs , maintained at desired rate Addendum: 01/26/20 at 2114 by BLAIR TARANGO RN Amended: Links added.
--- NOTE | 2020-01-26 21:14 | NUR ---
skin care beig provided , kept clean and dry Addendum: 01/26/20 at 2114 by BLAIR TARANGO RN Amended: Links added.
--- NOTE | 2020-01-26 21:16 | NUR ---
patient is antiviral medications and antibiotics Addendum: 01/26/20 at 2116 by BLAIR TARANGO RN Amended: Links added.
[2020-01-27] VITALS (25 sets, daily range): BP systolic 106–139; BP diastolic 52–76
[2020-01-27] MEDS: PROPOFOL 100 ML IV PRN ×5 (01:22→23:18)
[2020-01-27 03:14] LABS: HEPATITIS B SURFACE AB Non Reactive (.); HEPATITIS B SURFACE AG Negative (Negative)
[2020-01-27] MEDS: HYDROXYCHLOROQUINE 200 MG/8 ML SUSPENSION NG SCH (04:59)
[2020-01-27] MEDS: METOCLOPRAMIDE HCL 10 MG/2 ML VIAL IV SCH ×3 (04:59→22:05)
[2020-01-27 05:31] LABS: BASOPHILS % (AUTO) 0.6 % (0.0-2.0); EOSINOPHILS % (AUTO) 0.9 % (0.0-7.0); HEMATOCRIT 24.1 % (36.7-47.1); HEMOGLOBIN 8.2 g/dL (12.5-16.3); LYMPHOCYTES # (AUTO) 0.7 K/uL (20.0-40.0); MEAN CORPUSCULAR HEMOGLOBIN 30.6 uug (23.8-33.4); MEAN CORPUSCULAR HGB CONC 34 g/dL (32.5-36.3); MEAN CORPUSCULAR VOLUME 89.5 fL (73.0-96.2); MONOCYTES # (AUTO) 0.3 K/uL (2.0-10.0); MONOCYTES % (AUTO) 8.2 % (0.0-11.0); NEUTROPHILS # (AUTO) 2.5 K/uL (1.8-8.9); NEUTROPHILS % (AUTO) 70.3 % (38.5-71.5); PLATELET COUNT (AUTO) 73 K/uL (152-348); RED BLOOD CELL COUNT(AUTO) 2.69 MIL/uL (4.06-5.63); WHITE BLOOD COUNT (AUTO) 3.6 K/uL (3.6-10.2)
[2020-01-27 05:39] LABS: CARBON DIOXIDE 27 mmol/L (21-32); CHLORIDE 101 mmol/L (98-107); CREATININE 6.7 mg/dL (0.6-1.3); GLUCOSE 143 mg/dL (74-106); MAGNESIUM 1.9 mg/dL (1.8-2.4); PHOSPHOROUS 7.8 mg/dL (2.5-4.9)
[2020-01-27 05:40] LABS: UREA NITROGEN, BLOOD 87 mg/dL (7-18)
--- NOTE | 2020-01-27 06:00 | NUR ---
hemodialysis nurse is here at the bedside , sedated , diprivan has been turned down to 35 mcg , iv still running at 100 ml with 2 ampules of sodium bicarb .
--- NOTE | 2020-01-27 07:38 | NUR ---
RECEIVED PT ORALLY INTUBATED WITH ET TUBE SIZE 7.5 SECURED AT APPROXIMATELY 25 CM AT MID LIP. SETTINGS ARE :AC 26, VT 500, PEEP 5 AND FIO2 S8%. PT IS SEDATED BUT SEEMED COMFORTABLE SATURATING 99% AT THIS TIME. DIALYSIS NURSE IS INSIDE THE ROOM.
[2020-01-27] MEDS: PROTEIN SUPPLEMENT (PROSTAT) 30 ML LIQUID PO SCH ×3 (08:19→16:49)
[2020-01-27] MEDS: FAMOTIDINE 20 MG TABLET GT SCH (08:19)
--- NOTE | 2020-01-27 08:30 | NUR ---
NEPHROLOGY SERVICES DR. OSBORNE IN THE UNIT. FULL REPORT GIVEN SEE ORDER HISTORY FOR NEW ORDERS.
[2020-01-27 09:31] LABS: ABG BASE EXCESS 5.5 mmol/L; ABG HCO3 29.3 mmol/L; ABG PCO2 39.5 mmHg (35.0-45.0); ABG PH 7.488 (7.350-7.450); ABG PO2 91.9 mmHg (75.0-100.0); ABG SITE RIGHT RADIAL; ABG TOTAL HEMOGLOBIN 10.2 G/dL (13.5-18.0); COHb 0.6 % (0.5-1.5); MetHb 0.3 % (0.0-1.5); VENT MODE VENT - A/C; VT, ABG 500 mL
--- NOTE | 2020-01-27 09:36 | NUR ---
PULMONARY SERVICES DR. TRINIDAD IN THE UNIT, FULL REPORT GIVEN TO DR. TRINIDAD. SEE ORDER HISTORY FOR NEW ORDERS. DR. TRINIDAD AT BEDSIDE ASSESSING PATIENT.
[2020-01-27] MEDS: ACETAMINOPHEN 650 MG/20.3 ML LIQUID UDC NG PRN (13:03)
[2020-01-27] MEDS: OSMOLITE 1.2 CAL 1,000 ML LIQUID GT PRN (13:05)
--- NOTE | 2020-01-27 15:30 | NUR ---
ID SERVICES DR. NOGUEIRA IN THE UNIT. FULL REPORT GIVEN TO DR. NOGUEIRA, SEE ORDER HISTORY FOR NEW ORDERS.
--- NOTE | 2020-01-27 16:00 | NUR ---
ATTENDING MD DR. DELGADO IN THE UNIT. FULL REPORT GIVEN TO DR. JONES, SEE ORDER HISTORY FOR NEW ORDERS.
--- NOTE | 2020-01-27 19:40 | NUR ---
PT RECEIVED ORALLY INTUBATED WITH A SIZE 7.5 ETT SECURED WITH ANCHOR-FAST APPROX. 25CM AT THE LIP. PT IS ON A ERICKSON VENT, SETTINGS OF AC 24, 500, +5 PEEP, AND 28%. VENT PARAMETERS AND ALARMS CHECKED, ALARMS ARE AUDIBLE. PT IS TOLERATING VENT WELL, NO RESP. DISTRESS NOTED. PPE USED. BVM AT BEDSIDE. VENT PLUGGED INTO RED OUTLET. SUCTION PRN. WILL CONTINUE TO MONITOR.
--- NOTE | 2020-01-27 20:00 | NUR ---
ngt was change by day shift , flushes well , feeding machine was change twice , flushes well , no residual tubing changed twice , machine still keeps beeping .
--- NOTE | 2020-01-27 20:00 | NUR ---
100 ml of osmiolite given , tolerated well , no residual , placementof ngt check and and auscultated and aspirated , machine keeps beeping despite changing everything
--- NOTE | 2020-01-27 20:24 | NUR ---
lab levels being monitored and dialysis done today 500 ml out put Addendum: 01/27/20 at 2023 by BLAIR TARANGO RN Amended: Keyona medina. Addendum: 01/27/20 at 2028 by BLAIR TARANGO RN Amended: Keyona median. Addendum: 01/27/20 at 2030 by BLAIR TARANGO RN Amended: Links added. Addendum: 01/27/20 at 2033 by BLAIR TARANGO RN Amended: Links added. Addendum: 01/27/20 at 2033 by BLAIR TARANGO RN Amended: Links added.
--- NOTE | 2020-01-27 20:29 | NUR ---
temperature being monitored and and cooling measures applied when necessary Addendum: 01/27/20 at 2028 by BLAIR TARANGO RN Amended: Keyona medina. Addendum: 01/27/20 at 2030 by BLAIR TARANGO RN Amended: Keyona medina. Addendum: 01/27/20 at 2033 by BLAIR TARANGO RN Amended: Links added. Addendum: 01/27/20 at 2034 by BLAIR TARANGO RN Amended: Links added.
--- NOTE | 2020-01-27 20:30 | NUR ---
abg abd cxr being monitored vent settings applied when applicable per mds order Addendum: 01/27/20 at 2030 by BLAIR TARANGO RN Amended: Keyona added. Addendum: 01/27/20 at 2033 by BLAIR TARANGO RN Amended: Keyona added. Addendum: 01/27/20 at 2033 by BLAIR TARANGO RN Amended: Links added.
--- NOTE | 2020-01-27 20:34 | NUR ---
on gt feeding 20 ml , residual check , intake and output being monitored and skin care being done Addendum: 01/27/202033 by BLAIR TARANGO RN Amended: Links added. Addendum: 01/27/20 at 2033 by BLAIR TARANGO RN Amended: Links added.
--- NOTE | 2020-01-27 20:37 | NUR ---
family being educated about importance of dialysis , vent changes and isolation for the patient and sedation Addendum: 01/27/20 at 2037 by BLAIR TARANGO RN Amended: Links added.
[2020-01-28] VITALS (27 sets, daily range): BP systolic 107–149; BP diastolic 45–102
--- NOTE | 2020-01-28 | NUR ---
bolus 100ml of osmolite given , tolerated well , machine keeps beeping despite changeing everything and the ngt
--- NOTE | 2020-01-28 04:00 | NUR ---
100 ml bolus given of osmolite , tolerated well
--- NOTE | 2020-01-28 05:00 | NUR ---
more labored breathing vent setting of ac 26 tv 500 , fio2 28 % peep of 5 , diprivan at 30 mcg
[2020-01-28] MEDS: PROPOFOL 100 ML IV PRN ×3 (05:14→19:18)
[2020-01-28] MEDS: ACETAMINOPHEN 650 MG/20.3 ML LIQUID UDC NG PRN ×3 (05:49→14:26)
[2020-01-28] MEDS: METOCLOPRAMIDE HCL 10 MG/2 ML VIAL IV SCH ×3 (05:49→21:06)
[2020-01-28 06:20] LABS: BASOPHILS % (AUTO) 0.8 % (0.0-2.0); EOSINOPHILS % (AUTO) 0.9 % (0.0-7.0); HEMATOCRIT 25.4 % (36.7-47.1); HEMOGLOBIN 8.5 g/dL (12.5-16.3); LYMPHOCYTES # (AUTO) 0.8 K/uL (20.0-40.0); LYMPHOCYTES % (AUTO) 16.3 % (20.5-51.5); MEAN CORPUSCULAR HEMOGLOBIN 30.2 uug (23.8-33.4); MEAN CORPUSCULAR HGB CONC 34 g/dL (32.5-36.3); MEAN CORPUSCULAR VOLUME 89.6 fL (73.0-96.2); MONOCYTES # (AUTO) 0.5 K/uL (2.0-10.0); MONOCYTES % (AUTO) 9.9 % (0.0-11.0); NEUTROPHILS # (AUTO) 3.3 K/uL (1.8-8.9); NEUTROPHILS % (AUTO) 72.1 % (38.5-71.5); PLATELET COUNT (AUTO) 99 K/uL (152-348); RED BLOOD CELL COUNT(AUTO) 2.83 MIL/uL (4.06-5.63); WHITE BLOOD COUNT (AUTO) 4.6 K/uL (3.6-10.2)
--- NOTE | 2020-01-28 06:30 | NUR ---
130 of osmolite bolus given tolerated well ,
[2020-01-28 06:58] LABS: ALANINE AMINOTRANSFERASE 47 U/L (16-63); ALKALINE PHOSPHATASE 121 U/L (50-136); ASPARTATE AMINOTRANSFERASE 67 U/L (15-37); BILIRUBIN,TOTAL 1.2 mg/dL (0.2-1.0); CARBON DIOXIDE 27 mmol/L (21-32); CHLORIDE 101 mmol/L (98-107); CREATININE 7.3 mg/dL (0.6-1.3); GLUCOSE 96 mg/dL (74-106); MAGNESIUM 2.2 mg/dL (1.8-2.4); POTASSIUM 3.8 mmol/L (3.5-5.1)
[2020-01-28 07:00] LABS: PHOSPHOROUS 8.6 mg/dL (2.5-4.9); UREA NITROGEN, BLOOD 98 mg/dL (7-18)
--- NOTE | 2020-01-28 07:15 | NUR ---
endorsed to dayshift nurse , about the machine gt feeding , keeps beeping despite , ngt and tubes changed and machine changed twice ,
--- NOTE | 2020-01-28 07:23 | NUR ---
Received patient in bed with fever of 101.2 cooling measures implemented. uncontrolled atrial fibrillation in the 110-125'S. as reported and noted per ekg since 0300 this morning. Cardiology communication analyst will be notified accordingly. NG- on hold as reported patient high resistance and continues pump malfunctioning. As reported patient received boluses.
--- NOTE | 2020-01-28 07:30 | NUR ---
dr vega notified of recent blood work
[2020-01-28 07:57] LABS: ABG BASE EXCESS 2.1 mmol/L; ABG HCO3 26.5 mmol/L; ABG PCO2 40.8 mmHg (35.0-45.0); ABG PH 7.431 (7.350-7.450); ABG PO2 94.8 mmHg (75.0-100.0); ABG SITE RIGHT RADIAL; ABG TOTAL HEMOGLOBIN 9.2 G/dL (13.5-18.0); COHb 1.1 % (0.5-1.5); MetHb 0.3 % (0.0-1.5); O2Hb 96.7 % (94.0-97.0); VENT MODE VENT - A/C; VT, ABG 500 mL
[2020-01-28] MEDS: PROTEIN SUPPLEMENT (PROSTAT) 30 ML LIQUID PO SCH ×3 (08:52→16:45)
[2020-01-28] MEDS: FAMOTIDINE 20 MG TABLET GT SCH (08:52)
[2020-01-28] MEDS: ASPIRIN 81 MG TAB.CHEW PO SCH (08:52)
--- NOTE | 2020-01-28 10:15 | NUR ---
Pulmonary services, Dr. Cisneros in the unit to see and examine patient, full report given. See order hx.
--- NOTE | 2020-01-28 11:20 | NUR ---
Decreased RR to 18 per MD order. will cont to monitor pt
--- NOTE | 2020-01-28 14:10 | NUR ---
Attending physician Camilo Cerda, in the unit to see and examine patient, report given order to proceed and feed patient via boluse Q6H. as tolerated.
[2020-01-28] MEDS: MORPHINE SULFATE 4 MG/1 ML DISP.SYRIN IV PRN (14:27)
[2020-01-28] MEDS ORDERED: MEROPENEM 500 MG in IV NORMAL SALINE 50 ML IV SCH (16:30)
[2020-01-28 17:05] LABS: *BILIRUBIN,URIN NEGATIVE (NEGATIVE); *CLARITY,URINE SLIGHTLY CLOUDY (CLEAR); *COLOR,URINE YELLOW (YELLOW); *KETONES,URINE NEGATIVE (NEGATIVE); LEUKOCYTE ESTERASE ,URINE NEGATIVE (NEGATIVE); NITRITE, URINE NEGATIVE (NEGATIVE); UGLUCOSE NEGATIVE (NEGATIVE)
--- NOTE | 2020-01-28 17:07 | NUR ---
PHARMACY CLINICAL NOTES (VANCOMYCIN DOSING): S: 79 YO male with DX of Severe sepsis with septic shock d/t COVID-19 infection with pneumonia; Acute hypoxic respiratory failure, s/p intubation 01/22/2020. ordered Vancomycin and Merrem as empiric therapy. Adjusted merrem per renal fxn. O: BUN/SCR 98/7.3 WBC 4.6. T max 101.2, DOSING WT 175 LBS A/P: PT was started on HD (he was dialyzed yesterday 01/26), therefore will dose vancomycin 1250 mg x 1 today and will order a level pre-dialysis for futrure doses(not ordered yet). Will continue to monitor.
[2020-01-28 17:09] LABS: *BLOOD, URINE TRACE (NEGATIVE)
[2020-01-28 17:12] LABS: BACTERIA,URINE FEW /HPF (NONE SEEN); SQUAMOUS EPITHELIAL CELL,UR FEW /HPF (NONE SEEN); URINE AMORPHOUS URATE FEW /HPF; WBC,URINE 0-3 /HPF (0-3)
[2020-01-28] MEDS: MEROPENEM 500 MG in IV NORMAL SALINE 50 ML IV SCH (17:55)
[2020-01-28] MEDS ORDERED: VANCOMYCIN IV 1,250 MG in IV DEXTROSE 5% 250 ML IV ONE (18:30)
--- NOTE | 2020-01-28 19:20 | NUR ---
Pt received orally intubated on continuous mechanical ventilation via 7.5 ETT secured at 25cm lip line. Pt is on Bustamante vent with ordered settings of A/C-18, VT-500, PEEP+5, FIO2-28% Pt tolerating vent settings well. Sxn'd small amounts of thick yellowish secretions. ETT secured with AnchorFast device. ETT moved periodically per hospital policy. No signs or symptoms of respiratory distress noted. Bag/valve/mask at bedside. HME changed. Vent alarm parameters checked, on and audible. Vent plugged into red outlet. PPE used.
[2020-01-29] VITALS (24 sets, daily range): BP systolic 102–139; BP diastolic 54–94
[2020-01-29] MEDS: IV NORMAL SALINE 250 ML IV PRN (01:53)
[2020-01-29] MEDS: PROPOFOL 100 ML IV PRN ×2 (02:59→12:22)
[2020-01-29] MEDS: ACETAMINOPHEN 650 MG/20.3 ML LIQUID UDC NG PRN ×2 (03:56→08:49)
[2020-01-29 05:13] LABS: BASOPHILS % (AUTO) 0.6 % (0.0-2.0); EOSINOPHILS % (AUTO) 0.6 % (0.0-7.0); HEMOGLOBIN 9.1 g/dL (12.5-16.3); LYMPHOCYTES # (AUTO) 0.6 K/uL (20.0-40.0); LYMPHOCYTES % (AUTO) 10.1 % (20.5-51.5); MEAN CORPUSCULAR HEMOGLOBIN 30.2 uug (23.8-33.4); MEAN CORPUSCULAR HGB CONC 34 g/dL (32.5-36.3); MEAN CORPUSCULAR VOLUME 89.8 fL (73.0-96.2); MONOCYTES # (AUTO) 0.6 K/uL (2.0-10.0); MONOCYTES % (AUTO) 8.8 % (0.0-11.0); NEUTROPHILS # (AUTO) 5.1 K/uL (1.8-8.9); NEUTROPHILS % (AUTO) 79.9 % (38.5-71.5); PLATELET COUNT (AUTO) 133 K/uL (152-348); WHITE BLOOD COUNT (AUTO) 6.4 K/uL (3.6-10.2)
[2020-01-29] MEDS: METOCLOPRAMIDE HCL 10 MG/2 ML VIAL IV SCH ×3 (05:45→21:46)
--- NOTE | 2020-01-29 05:50 | NUR ---
Respiratory rate decreased to A/C-15 per MD orders. JAJA Delgado notified.
[2020-01-29 06:05] LABS: CARBON DIOXIDE 25 mmol/L (21-32); CHLORIDE 100 mmol/L (98-107); FERRITIN 706 ng/mL (26-388); GLUCOSE 153 mg/dL (74-106); LACTATE DEHYDROGENASE 397 U/L (85-227); MAGNESIUM 2.4 mg/dL (1.8-2.4); POTASSIUM 4.1 mmol/L (3.5-5.1); TRIGLYCERIDES 182 MG/DL (30-150)
[2020-01-29 06:19] LABS: UREA NITROGEN, BLOOD 120 mg/dL (7-18)
[2020-01-29 06:20] LABS: CREATININE 8.5 mg/dL (0.6-1.3); PHOSPHOROUS 10.2 mg/dL (2.5-4.9)
--- NOTE | 2020-01-29 08:00 | NUR ---
HEMODIALYSIS STARTED IN THE ROOM BY HD NURSE. PT TOLERATING WELL.
[2020-01-29 08:10] LABS: ABG BASE EXCESS 1.1 mmol/L; ABG HCO3 25.6 mmol/L; ABG PCO2 40.3 mmHg (35.0-45.0); ABG PH 7.421 (7.350-7.450); ABG PO2 96.4 mmHg (75.0-100.0); ABG SITE LEFT RADIAL; ABG TOTAL HEMOGLOBIN 6.3 G/dL (13.5-18.0); MetHb 0.6 % (0.0-1.5); VENT MODE VENT - A/C; VT, ABG 500 mL
--- NOTE | 2020-01-29 08:30 | NUR ---
SEEN AND EXAMINED BY DR TRINIDAD WITH NEW ORDERS.
[2020-01-29] MEDS: FAMOTIDINE 20 MG TABLET GT SCH (08:57)
[2020-01-29] MEDS: PROTEIN SUPPLEMENT (PROSTAT) 30 ML LIQUID PO SCH ×3 (08:57→17:56)
[2020-01-29] MEDS: ASPIRIN 81 MG TAB.CHEW PO SCH (08:57)
[2020-01-29] MEDS ORDERED: SEVELAMER CARBONATE 800 MG TABLET PO SCH (12:00)
[2020-01-29] MEDS ORDERED: AMIODARONE HCL IV 150 MG in IV DEXTROSE 5% 100 ML IV ONE (12:05)
[2020-01-29] MEDS ORDERED: VANCOMYCIN IV 500 MG in IV DEXTROSE 5% 100 ML IV ONE (12:30)
--- NOTE | 2020-01-29 12:35 | NUR ---
PHARMACY CLINICAL NOTES (VANCOMYCIN DOSING): S: 79 YO male with DX of Severe sepsis with septic shock d/t COVID-19 infection with pneumonia; Acute hypoxic respiratory failure, s/p intubation 01/22/2020. ordered Vancomycin and Merrem as empiric therapy. Adjusted merrem per renal fxn. O: BUN/SCR 120/8.5 WBC 6.4. T max 100.4, DOSING WT 175 LBS Vancomycin random (Pre-HD level) today at 0445:18.6 A/P: PT was started on HD (he will be dialyzed today), According to Vancomycin protocol for HD, will give Vancomycin 500mg IV today after HD. Will check HD schedule daily for further dosing.
[2020-01-29] MEDS: SEVELAMER CARBONATE 800 MG POWD.PACK NG SCH ×2 (13:23→17:47)
[2020-01-29] MEDS: AMIODARONE HCL IV 450 MG in IV DEXTROSE 5% 250 ML IV PRN ×3 (13:30→21:44)
--- NOTE | 2020-01-29 13:30 | NUR ---
AMIODARONE DRIP STARTED AFTER THE FIRST DOSE BOLUS AND INFUSING AT 1.0MG/HR ORDERED BY DR SULLIVAN. HR IS PERSISTENTLY UNCONTROLLED AFIB ABOVE 120 WITH FREQUENT PVC'S.
--- NOTE | 2020-01-29 14:00 | NUR ---
PT PLACED ON HYPOTHERMIA BLANKET FOR TEMP OF 102.1. FEVER DID NOT GO DOWN WITH TYLENOL.
[2020-01-29] MEDS ORDERED: ALTEPLASE 2 MG VIAL IVP ONE (14:30)
[2020-01-29] MEDS: MEROPENEM 500 MG in IV NORMAL SALINE 50 ML IV SCH (17:58)
[2020-01-29] MEDS ORDERED: NEPRO 1000 ML GT PRN (18:00)
[2020-01-30] VITALS (23 sets, daily range): BP systolic 81–148; BP diastolic 43–96
[2020-01-30] MEDS: ACETAMINOPHEN 650 MG/20.3 ML LIQUID UDC NG PRN (01:46)
--- NOTE | 2020-01-30 02:00 | NUR ---
Tylenol / eMar; temp 100.9 rectal.
[2020-01-30 05:39] LABS: CARBON DIOXIDE 25 mmol/L (21-32); CHLORIDE 101 mmol/L (98-107); GLUCOSE 154 mg/dL (74-106); MAGNESIUM 2.6 mg/dL (1.8-2.4); POTASSIUM 3.9 mmol/L (3.5-5.1)
[2020-01-30] MEDS: METOCLOPRAMIDE HCL 10 MG/2 ML VIAL IV SCH ×3 (05:41→22:15)
[2020-01-30 05:45] LABS: CREATININE 7.8 mg/dL (0.6-1.3); PHOSPHOROUS 9.8 mg/dL (2.5-4.9); UREA NITROGEN, BLOOD 117 mg/dL (7-18)
[2020-01-30 05:55] LABS: BASOPHILS % (AUTO) 0.6 % (0.0-2.0); EOSINOPHILS # (AUTO) 0.1 K/uL (0.0-0.7); EOSINOPHILS % (AUTO) 1.6 % (0.0-7.0); HEMOGLOBIN 9.3 g/dL (12.5-16.3); LYMPHOCYTES # (AUTO) 0.7 K/uL (20.0-40.0); LYMPHOCYTES % (AUTO) 10.9 % (20.5-51.5); MEAN CORPUSCULAR HEMOGLOBIN 30.1 uug (23.8-33.4); MEAN CORPUSCULAR HGB CONC 33 g/dL (32.5-36.3); MEAN CORPUSCULAR VOLUME 90.3 fL (73.0-96.2); MONOCYTES # (AUTO) 0.6 K/uL (2.0-10.0); NEUTROPHILS # (AUTO) 4.8 K/uL (1.8-8.9); NEUTROPHILS % (AUTO) 77.9 % (38.5-71.5); PLATELET COUNT (AUTO) 140 K/uL (152-348); WHITE BLOOD COUNT (AUTO) 6.2 K/uL (3.6-10.2)
--- NOTE | 2020-01-30 08:00 | NUR ---
SEEN AND EXAMINED BY DR STARKEY WITH NEW ORDERS.
--- NOTE | 2020-01-30 08:30 | NUR ---
PT HAS A LARGE AMOUNT OF LOOSE BOWEL MOVEMENT. CLEANED UP. TEMP IS 100.1F. PLACED ON HYPOTHERMIC BLANKET.
[2020-01-30] MEDS: PROTEIN SUPPLEMENT (PROSTAT) 30 ML LIQUID PO SCH ×3 (08:51→17:00)
[2020-01-30] MEDS: SEVELAMER CARBONATE 800 MG POWD.PACK NG SCH ×3 (08:51→17:00)
[2020-01-30] MEDS: FAMOTIDINE 20 MG TABLET GT SCH (08:52)
[2020-01-30] MEDS: ASPIRIN 81 MG TAB.CHEW PO SCH (08:52)
--- NOTE | 2020-01-30 09:00 | NUR ---
SEEN AND EXAMINED BY DR TRINIDAD WITH NEW ORDERS.
--- NOTE | 2020-01-30 09:30 | NUR ---
HEMODIALYSIS STARTED IN THE ROOM. PT TOLERATING GOOD.
[2020-01-30] MEDS: AMIODARONE HCL IV 450 MG in IV DEXTROSE 5% 250 ML IV PRN (11:47)
--- NOTE | 2020-01-30 12:51 | NUR ---
PHARMACY CLINICAL NOTES (VANCOMYCIN DOSING): S: To continue vanco dosing for this 79 YO male on dialysis, with DX of Severe sepsis with septic shock d/t COVID-19 infection with pneumonia; Acute hypoxic respiratory failure, s/p intubation 01/22/2020. O: BUN/SCR 117/7.8 WBC 6.2. Temp 99.3 Vancomycin random (Pre-HD level) on 01/28 at 0445:18.6 Vancomycin random (Pre-HD level) on 01/29 with am labs:17.6 (pre-HD) A/P: Patient is to be dialyzed today According to Vancomycin protocol for HD, will give Vancomycin 500mg IV today after HD since pre-HD vanco level is between 15-2 mcg/ml.Will check HD schedule daily for further dosing.
[2020-01-30] MEDS: MORPHINE SULFATE 4 MG/1 ML DISP.SYRIN IV PRN (13:16)
--- NOTE | 2020-01-30 13:30 | NUR ---
SEEN AND EXAMINED BY AMINAH BA TO KEEP THE AMIODARONE DRIP GOING AT 0.5MG/MIN CONTINOUSLY.
--- NOTE | 2020-01-30 13:40 | NUR ---
PT'S BP IS ELEVETED IN THE 165 SYSTOLIC. AND BREATHING IS SHALLOW AND FAST. PT HAS BEEN OFF DIPRIVAN SINCE LAST NIGHT. RESUMED PROPOFOL DRIP TO KEEP PT CALM AND SEDATED AT 25MCG/KG/MIN.
[2020-01-30] MEDS: PROPOFOL 100 ML IV PRN (13:44)
--- NOTE | 2020-01-30 15:00 | NUR ---
PT IS MORE IS RELAX AND SBP WENT DOWN IN THE 120 SYSTOLIC. HEMODIALYSIS IS DONE AND TOTAL FLUID OUT IS 2 LITERS. PT HAS ANOTHER HUGE AMOUNT OF LIQUID STOOLS. PM CARE RENDERED. PT IS MORE RELAXED.
[2020-01-30] MEDS: IV NORMAL SALINE 250 ML IV PRN (16:30)
--- NOTE | 2020-01-30 17:06 | NUR ---
Spoke with JAJA Birch re: loose stools last night and today. Suspect this may due to several factors including changing to a higher osmolality formula (Osmolite to Nepro), and an increase in total volume (continuous formula infusion to bolus). Suggested decrease volume of formula (RN discretion), and possibly add Nutrisource fiber. Addendum: 01/30/20 at [address] Amended: Links added.
[2020-01-30] MEDS: MEROPENEM 500 MG in IV NORMAL SALINE 50 ML IV SCH (17:53)
[2020-01-30] MEDS ORDERED: VANCOMYCIN IV 500 MG in IV DEXTROSE 5% 100 ML IV ONE (18:00)
--- NOTE | 2020-01-30 19:15 | NUR ---
received patient vent setting of ac 15 ,tv 500 . p 5 fio2 28% , amiodarone at 0.5 mg , diprivan at 5 mcg , right groin central line , yuval catheter left groin both intact and patent , ngt intact , no edema , benitez intact , suctioned with moderate amount of thick secretions
--- NOTE | 2020-01-30 20:00 | NUR ---
cooling blanket is on set at tempt at 98.6
[2020-01-31] VITALS (22 sets, daily range): BP systolic 102–153; BP diastolic 53–104
--- NOTE | 2020-01-31 | NUR ---
cooling blanket is off
--- NOTE | 2020-01-31 00:01 | NUR ---
abg and cxr being monitored , mental status being observed , breathing and tolerance current vent setting being monitored Addendum: 01/31/20 at 0001 by BLAIR TARANGO RN Amended: Keyona added. Addendum: 01/31/20 at 0003 by BLAIR TARANGO RN Amended: Keyona added. Addendum: 01/31/20 at 0004 by BLAIR TARANGO RN Amended: Links added. Addendum: 01/31/20 at 0005 by BLAIR TARANGO RN Amended: Links added.
--- NOTE | 2020-01-31 00:03 | NUR ---
ivan osmanarely mohinder doutput being monitored and weight and treatment per wound care recommendation being given Addendum: 01/31/20 at 0003 by BLAIR TARANGO RN Amended: Keyona added. Addendum: 01/31/20 at 0004 by BLAIR TARANGO RN Amended: Keyona added. Addendum: 01/31/20 at 0005 by BLAIR TARANGO RN Amended: Links added.
--- NOTE | 2020-01-31 00:04 | NUR ---
patient is on antibiotics Addendum: 01/31/20 at 0004 by BLAIR TARANGO RN Amended: Keyona added. Addendum: 01/31/20 at 0005 by BLAIR TARANGO RN Amended: Keyona medina.
--- NOTE | 2020-01-31 00:05 | NUR ---
family teaching of isolation precautuin and dialysis importance , verbalizes undertanding Addendum: 01/31/20 at 0005 by BLAIR TARANGO RN Amended: Links added.
[2020-01-31] MEDS: PROPOFOL 100 ML IV PRN (00:48)
[2020-01-31] MEDS: AMIODARONE HCL IV 450 MG in IV DEXTROSE 5% 250 ML IV PRN ×2 (03:19→17:16)
[2020-01-31] MEDS: METOCLOPRAMIDE HCL 10 MG/2 ML VIAL IV SCH ×3 (05:14→21:24)
[2020-01-31] MEDS: NEPRO (VANILLA) 237 ML CAN NG SCH ×5 (06:00→17:15)
--- NOTE | 2020-01-31 06:00 | NUR ---
bolus of nephro 200 m , given tolerated well via ngt , cxr done
[2020-01-31 06:03] LABS: BASOPHILS % (AUTO) 0.7 % (0.0-2.0); EOSINOPHILS # (AUTO) 0.1 K/uL (0.0-0.7); EOSINOPHILS % (AUTO) 2.1 % (0.0-7.0); HEMATOCRIT 26.1 % (36.7-47.1); HEMOGLOBIN 9.4 g/dL (12.5-16.3); LYMPHOCYTES % (AUTO) 18.2 % (20.5-51.5); MEAN CORPUSCULAR HEMOGLOBIN 32.7 uug (23.8-33.4); MEAN CORPUSCULAR HGB CONC 36 g/dL (32.5-36.3); MEAN CORPUSCULAR VOLUME 90.1 fL (73.0-96.2); MONOCYTES # (AUTO) 0.5 K/uL (2.0-10.0); MONOCYTES % (AUTO) 9.4 % (0.0-11.0); NEUTROPHILS % (AUTO) 69.6 % (38.5-71.5); PLATELET COUNT (AUTO) 164 K/uL (152-348); RED BLOOD CELL COUNT(AUTO) 2.89 MIL/uL (4.06-5.63); WHITE BLOOD COUNT (AUTO) 5.8 K/uL (3.6-10.2)
[2020-01-31 06:32] LABS: CARBON DIOXIDE 29 mmol/L (21-32); CHLORIDE 102 mmol/L (98-107); CREATININE 6.9 mg/dL (0.6-1.3); FERRITIN 743 ng/mL (26-388); GLUCOSE 120 mg/dL (74-106); LACTATE DEHYDROGENASE 365 U/L (85-227); MAGNESIUM 2.4 mg/dL (1.8-2.4); PHOSPHOROUS 7.7 mg/dL (2.5-4.9); POTASSIUM 3.6 mmol/L (3.5-5.1)
[2020-01-31 06:33] LABS: UREA NITROGEN, BLOOD 97 mg/dL (7-18)
--- NOTE | 2020-01-31 06:47 | NUR ---
patient is on amiodarone 0.5 mg , and just converted back to afib with rate of 80"s , vs stable , deep labored breathing diprivan at 5 mcg ,
[2020-01-31] MEDS: ASPIRIN 81 MG TAB.CHEW PO SCH (08:02)
[2020-01-31] MEDS: FAMOTIDINE 20 MG TABLET GT SCH (08:02)
[2020-01-31] MEDS: PROTEIN SUPPLEMENT (PROSTAT) 30 ML LIQUID PO SCH ×3 (08:03→17:11)
[2020-01-31] MEDS: SEVELAMER CARBONATE 800 MG POWD.PACK NG SCH ×3 (08:03→17:10)
[2020-01-31 08:14] LABS: ABG BASE EXCESS -2.2 mmol/L; ABG HCO3 21.8 mmol/L; ABG PCO2 35.1 mmHg (35.0-45.0); ABG PH 7.412 (7.350-7.450); ABG PO2 110.2 mmHg (75.0-100.0); ABG SITE RIGHT BRACHIAL; ABG TOTAL HEMOGLOBIN 11.2 G/dL (13.5-18.0); COHb 0.9 % (0.5-1.5); MetHb 0.1 % (0.0-1.5); O2Hb 97.1 % (94.0-97.0); VENT MODE VENT - A/C; VT, ABG 500 mL
--- NOTE | 2020-01-31 10:37 | NUR ---
PHARMACY CLINICAL NOTES (VANCOMYCIN DOSING): S: To continue vanco dosing for this 79 YO male on dialysis, with DX of Severe sepsis with septic shock d/t COVID-19 infection with pneumonia; Acute hypoxic respiratory failure, s/p intubation 01/22/2020. O: BUN/SCR 97/6.9 WBC 5.8 Temp 98.9 Vancomycin random (Pre-HD level) on 01/28 at 0445:18.6 Vancomycin random (Pre-HD level) on 01/29 with am labs:17.6 (pre-HD) A/P: Patient is to be dialyzed today No HD today. According to Vancomycin protocol for HD, No dose shall be given today. Will check HD schedule daily for further dosing.
--- NOTE | 2020-01-31 11:20 | NUR ---
DOCTOR SIDNEY PHONED FOR UPDATES AND ORDERS. PLAN TO DIALIZE TOMORROW AGAIN. INFORMED THAT AMOS WAS IN THE UNIT AND PLAN FOR WEANING IF AWAKE ENOUGH FOR TOMORROW.
[2020-01-31] MEDS: MEROPENEM 500 MG in IV NORMAL SALINE 50 ML IV SCH (17:14)
--- NOTE | 2020-01-31 19:00 | NUR ---
PT RECEIVED ORALLY INTUBATED WITH ET TUBE 7.5 SECURED AT 25 CM LIP LINE VIA ANCHOR FAST. VENT SETTINGS AC 15 VT 500 PEEP 5 FIO2 28%. SUCTION PRN. VENT CHECKED, ALARMS WORKING WELL. WILL CONTINUE TO MONITOR. PPE USED.
--- NOTE | 2020-01-31 19:30 | NUR ---
received patient on a cooling blanket with a temperature > 100 ,0
--- NOTE | 2020-01-31 19:30 | NUR ---
RECEIVED PATIENT WITH SHALLOW LABORED BREATHING , DIPRIVAN OFF , AMIODARONE AT 0.5 MG CENTRAL INTACT , TEMPERATURE ,IS 100 . 2 , VENT SETTINGS AC 15 , TV 500 P5 FI02 28 % , ATKINSON INTACT , NO SPONTANEOUS EYE OPENING
--- NOTE | 2020-01-31 21:50 | NUR ---
LAB WORK BEING MONITORED AND HEMODIALYSIS SCHEDULE FOR TOMORROW Addendum: 01/31/20 at 2150 by BLAIR TARANGO RN Amended: Keyona added. Addendum: 01/31/20 at 2151 by BLAIR TARANGO RN Amended: Keyona medina.
--- NOTE | 2020-01-31 21:51 | NUR ---
TEMPERATURE BEING MONITORED AND COOLING BLANKET IS APPLIED FOR TEMP > 100. Addendum: 01/31/20 at 2151 by BLAIR TARANGO RN Amended: Links added.
--- NOTE | 2020-01-31 21:53 | NUR ---
ABG AND BREATHING AND CXR BEING MONITORED AND VENT SETTINGS BEING MONITORED ACCORDING TO THE PATIENT'S TOLERANCE Addendum: 01/31/20 at 2154 by BLAIR TARANGO RN Amended: Links added.
--- NOTE | 2020-01-31 21:55 | NUR ---
PATIENT NUTRITIONAL STATUS BEING MONIORED , PLACED IN I BED AND INTAKE AND OUT PUT BEING MONITORED Addendum: 01/31/20 at 2155 by BLAIR TARANGO RN Amended: Links added.
--- NOTE | 2020-01-31 21:57 | NUR ---
LAB WORK LEVELS BEING MONITORED AND PATIENT IS ON ANTIBIOTICS Addendum: 01/31/20 at 2157 by BLAIR TARANGO RN Amended: Keyona added. Addendum: 01/31/20 at 2158 by BLAIR TARANGO RN Amended: Keyona medina.
--- NOTE | 2020-01-31 21:58 | NUR ---
FAMILY BEING EDUCATED AND INFORMED ABOUT TREATMENT PLAN Addendum: 01/31/20 at 2158 by BLAIR TARANGO RN Amended: Links added.
[2020-02-01] VITALS (24 sets, daily range): BP systolic 123–168; BP diastolic 69–111
--- NOTE | 2020-02-01 | NUR ---
marcella labored breathing , bolus feeding held via ngt , arousable , by withdrawing to deep pain , diprivan at 5 mcg
--- NOTE | 2020-02-01 01:25 | NUR ---
respiratory notified of patient's status , and changed fio2 to 100 % , will call dr store operations associate for poacher operator
--- NOTE | 2020-02-01 01:30 | NUR ---
concrete stone finishing supervisor braxton , notified of patient's increasing worsening breathing , dr cali is called and notified of patient's status . received order of cxr and abg stat , will call for results
--- NOTE | 2020-02-01 01:40 | NUR ---
cxr and respiratory notified of stat orders
[2020-02-01 02:19] LABS: ABG BASE EXCESS -2.2 mmol/L; ABG HCO3 22.3 mmol/L; ABG PCO2 37.1 mmHg (35.0-45.0); ABG PH 7.396 (7.350-7.450); ABG PO2 485.6 mmHg (75.0-100.0); ABG SITE RIGHT BRACHIAL; ABG TOTAL HEMOGLOBIN 11.8 G/dL (13.5-18.0); COHb 0.5 % (0.5-1.5); MetHb 0.1 % (0.0-1.5); O2Hb 99.1 % (94.0-97.0); VENT MODE VENT - A/C; VT, ABG 500 mL
--- NOTE | 2020-02-01 02:49 | NUR ---
abg and cxr , reported to dr fernández
[2020-02-01] MEDS: METOCLOPRAMIDE HCL 10 MG/2 ML VIAL IV SCH ×3 (05:12→21:29)
[2020-02-01] MEDS: NEPRO (VANILLA) 237 ML CAN NG SCH ×4 (06:00→17:57)
[2020-02-01 06:04] LABS: BASOPHILS # (AUTO) 0.1 K/uL (0.0-8.0); BASOPHILS % (AUTO) 0.8 % (0.0-2.0); EOSINOPHILS # (AUTO) 0.1 K/uL (0.0-0.7); EOSINOPHILS % (AUTO) 0.7 % (0.0-7.0); HEMATOCRIT 29.8 % (36.7-47.1); HEMOGLOBIN 9.9 g/dL (12.5-16.3); LYMPHOCYTES # (AUTO) 1.5 K/uL (20.0-40.0); LYMPHOCYTES % (AUTO) 16.3 % (20.5-51.5); MEAN CORPUSCULAR HEMOGLOBIN 29.5 uug (23.8-33.4); MEAN CORPUSCULAR HGB CONC 33 g/dL (32.5-36.3); MEAN CORPUSCULAR VOLUME 89.1 fL (73.0-96.2); MONOCYTES # (AUTO) 0.8 K/uL (2.0-10.0); MONOCYTES % (AUTO) 8.4 % (0.0-11.0); NEUTROPHILS # (AUTO) 6.8 K/uL (1.8-8.9); NEUTROPHILS % (AUTO) 73.8 % (38.5-71.5); PLATELET COUNT (AUTO) 242 K/uL (152-348); RED BLOOD CELL COUNT(AUTO) 3.35 MIL/uL (4.06-5.63); WHITE BLOOD COUNT (AUTO) 9.2 K/uL (3.6-10.2)
[2020-02-01 06:38] LABS: CARBON DIOXIDE 23 mmol/L (21-32); CHLORIDE 100 mmol/L (98-107); GLUCOSE 122 mg/dL (74-106); MAGNESIUM 2.8 mg/dL (1.8-2.4); POTASSIUM 4.5 mmol/L (3.5-5.1)
[2020-02-01 06:44] LABS: UREA NITROGEN, BLOOD 129 mg/dL (7-18)
[2020-02-01 06:46] LABS: CREATININE 7.8 mg/dL (0.6-1.3); PHOSPHOROUS 9.3 mg/dL (2.5-4.9)
--- NOTE | 2020-02-01 06:48 | NUR ---
hemodialysis nurse is here to start dialysis , , update given on the patient's status
--- NOTE | 2020-02-01 07:00 | NUR ---
Received patient on dialysis this am no feeding were given due to worsening of breathing and fever.
--- NOTE | 2020-02-01 07:45 | NUR ---
PT RECEIVED ORALLY INTUBATED ON A ERICKSON VENT, 7.5 ETT SECURED WITH ANCHOR-FAST APPROX. 25CM AT THE LIP. PT ON CMV, SETTINGS OF A/C 15, VT 500, PEEP+ 5, FIO2 28%. VENT PARAMETERS AND ALARMS CHECKED, ALARMS ARE AUDIBLE. VENT PLUGGED INTO RED OUTLET. BVM AT BEDSIDE. PT IS ON DIALYSIS, HAIR ASSISTANT AT BEDSIDE. UNABLE TO WEAN AT THIS TIME. RN IS AWARE. PT IS TOLERATING VENT WELL, NO RESP. DISTRESS NOTED. SUCTION PRN. WILL CONTINUE TO MONITOR.
--- NOTE | 2020-02-01 07:45 | NUR ---
PHARMACY CLINICAL NOTES (VANCOMYCIN DOSING): S: To continue vanco dosing for this 79 YO male on dialysis, with DX of Severe sepsis with septic shock d/t COVID-19 infection with pneumonia; Acute hypoxic respiratory failure, s/p intubation 01/22/2020. O: BUN/SCR 129/7.8 WBC 9.2 Temp 97.8 Vancomycin random (Pre-HD level) on 01/28 at 0445:18.6 Vancomycin random (Pre-HD level) on 01/29 with am labs:17.6 (pre-HD) Vancomycin random (Pre-HD level) on 01/31 with am labs:16.9 (pre-HD) A/P: Patient is to be dialyzed today. According to Vancomycin protocol for HD, will give vanco 500 mg IVPB x1 today post HD since vanco pre-HD level is between 15-20 mcg/ml. Will check HD schedule daily for further dosing.
--- NOTE | 2020-02-01 10:00 | NUR ---
dialysis completed. out 2.[address] edge in the unit to see patient
[2020-02-01] MEDS: ASPIRIN 81 MG TAB.CHEW PO SCH (10:47)
[2020-02-01] MEDS: PROTEIN SUPPLEMENT (PROSTAT) 30 ML LIQUID PO SCH ×3 (10:47→17:53)
[2020-02-01] MEDS: FAMOTIDINE 20 MG TABLET GT SCH (10:47)
[2020-02-01] MEDS: SEVELAMER CARBONATE 800 MG POWD.PACK NG SCH ×3 (10:48→17:52)
[2020-02-01] MEDS: AMIODARONE HCL IV 450 MG in IV DEXTROSE 5% 250 ML IV PRN (10:50)
[2020-02-01 12:11] LABS: ABG BASE EXCESS -0.5 mmol/L; ABG HCO3 23.2 mmol/L; ABG PCO2 34.5 mmHg (35.0-45.0); ABG PH 7.445 (7.350-7.450); ABG PO2 113.1 mmHg (75.0-100.0); ABG SITE LEFT RADIAL; ABG TOTAL HEMOGLOBIN 10.4 G/dL (13.5-18.0); COHb 0.8 % (0.5-1.5); MetHb 0.2 % (0.0-1.5); O2Hb 97.6 % (94.0-97.0); VENT MODE CPAP
--- NOTE | 2020-02-01 12:20 | NUR ---
PT TOLERATED CPAP, PSV 8 WELL FOR APPROX. 1 HOUR. ADEQUATE VOLUMES OBSERVED, VITALS STABLE. ABG DRAWN. PT PLACED BACK ON PREVIOUS A/C SETTINGS. RN NOTIFIED. WILL CONTINUE TO MONITOR.
[2020-02-01 13:21] LABS: BILIRUBIN,DIRECT 0.4 mg/dL (0.0-0.2); BILIRUBIN,TOTAL 0.6 mg/dL (0.2-1.0); TOTAL PROTEIN, SERUM 6.9 g/dL (6.4-8.2)
--- NOTE | 2020-02-01 15:00 | NUR ---
doctor hao in the unit. informed that yesterday went into 120's but also correlated with patient spiking a fever. no further abnormalities today SR zapata frequent pvc, bigeminy.
--- NOTE | 2020-02-01 16:00 | NUR ---
NIKO KHOURY. IN THE UNIT NO FURTHER ORDERS FOR THE PATIENT AT THIS TIME
[2020-02-01] MEDS ORDERED: VANCOMYCIN IV 500 MG in IV DEXTROSE 5% 100 ML IV ONE (17:00)
[2020-02-01] MEDS: MEROPENEM 500 MG in IV NORMAL SALINE 50 ML IV SCH (17:53)
--- NOTE | 2020-02-01 19:30 | NUR ---
Pt received on Bustamante vent with current settings of AC 15, VT 500, Peep +5, FiO2 28%. Pt is orally intubated with a 7.5 ETT, secure with anchor fast at approximately 25cm at the lip. Suctioned pt with moderate amount of thick yellowish secretions. Changed HME and filter. No signs of respiratory distress noted at this time. Pt tolerating vent setting well. Vent alarms functioning and audible. Vent plugged in red outlet. Ambu-bag at bedside. Will continue to monitor pt throughout shift.
[2020-02-01] MEDS: AMIODARONE HCL 200 MG TABLET PO SCH (21:29)
[2020-02-02] VITALS (23 sets, daily range): BP systolic 98–153; BP diastolic 55–89
[2020-02-02] MEDS: NEPRO (VANILLA) 237 ML CAN NG SCH ×5 (00:44→23:37)
[2020-02-02 05:56] LABS: BASOPHILS # (AUTO) 0.1 K/uL (0.0-8.0); BASOPHILS % (AUTO) 0.9 % (0.0-2.0); EOSINOPHILS # (AUTO) 0.1 K/uL (0.0-0.7); EOSINOPHILS % (AUTO) 1.6 % (0.0-7.0); HEMATOCRIT 26.9 % (36.7-47.1); LYMPHOCYTES # (AUTO) 1.4 K/uL (20.0-40.0); LYMPHOCYTES % (AUTO) 19.3 % (20.5-51.5); MEAN CORPUSCULAR HGB CONC 33 g/dL (32.5-36.3); MEAN CORPUSCULAR VOLUME 90.1 fL (73.0-96.2); MONOCYTES # (AUTO) 0.5 K/uL (2.0-10.0); MONOCYTES % (AUTO) 7.6 % (0.0-11.0); NEUTROPHILS # (AUTO) 5.1 K/uL (1.8-8.9); NEUTROPHILS % (AUTO) 70.6 % (38.5-71.5); PLATELET COUNT (AUTO) 177 K/uL (152-348); RED BLOOD CELL COUNT(AUTO) 2.98 MIL/uL (4.06-5.63); WHITE BLOOD COUNT (AUTO) 7.2 K/uL (3.6-10.2)
[2020-02-02] MEDS: METOCLOPRAMIDE HCL 10 MG/2 ML VIAL IV SCH ×3 (06:13→22:29)
[2020-02-02 06:26] LABS: CARBON DIOXIDE 25 mmol/L (21-32); CHLORIDE 101 mmol/L (98-107); CREATININE 6.8 mg/dL (0.6-1.3); FERRITIN 587 ng/mL (26-388); GLUCOSE 117 mg/dL (74-106); LACTATE DEHYDROGENASE 329 U/L (85-227); MAGNESIUM 2.8 mg/dL (1.8-2.4); PHOSPHOROUS 7.8 mg/dL (2.5-4.9)
[2020-02-02 06:28] LABS: UREA NITROGEN, BLOOD 116 mg/dL (7-18)
[2020-02-02] MEDS: PROTEIN SUPPLEMENT (PROSTAT) 30 ML LIQUID PO SCH ×3 (08:16→17:06)
[2020-02-02] MEDS: FAMOTIDINE 20 MG TABLET GT SCH (08:16)
[2020-02-02] MEDS: SEVELAMER CARBONATE 800 MG POWD.PACK NG SCH ×3 (08:16→17:07)
[2020-02-02] MEDS: AMIODARONE HCL 200 MG TABLET PO SCH ×2 (08:16→20:47)
[2020-02-02] MEDS: ASPIRIN 81 MG TAB.CHEW PO SCH (08:16)
--- NOTE | 2020-02-02 08:30 | NUR ---
PATIENT SEEN BY DR SULLIVAN, FULL REPORT GIVEN, PATIENT DISCUSSED. SEE NOTES.
[2020-02-02 09:02] LABS: ABG BASE EXCESS -3.6 mmol/L; ABG PCO2 30.5 mmHg (35.0-45.0); ABG PH 7.434 (7.350-7.450); ABG PO2 120.7 mmHg (75.0-100.0); ABG SITE LEFT RADIAL; ABG TOTAL HEMOGLOBIN 8.6 G/dL (13.5-18.0); COHb 0.9 % (0.5-1.5); MetHb 0.3 % (0.0-1.5); O2Hb 97.6 % (94.0-97.0); VENT MODE VENT - CPAP
--- NOTE | 2020-02-02 09:03 | NUR ---
PHARMACY CLINICAL NOTES (VANCOMYCIN DOSING): S: To continue vanco dosing for this 79 YO male on dialysis, with DX of Severe sepsis with septic shock d/t COVID-19 infection with pneumonia; Acute hypoxic respiratory failure, s/p intubation 01/22/2020. O: BUN/SCR 116/6.8 WBC 7.2 Temp 98.6 Vancomycin random (Pre-HD level) on 01/28 at 0445:18.6 Vancomycin random (Pre-HD level) on 01/29 with am labs:17.6 (pre-HD) Vancomycin random (Pre-HD level) on 01/31 with am labs:16.9 (pre-HD) A/P: No HD today, therefore according to Vancomycin protocol for HD, no further dose will be given today. Last vanco 500 mg IVPB x1 given yesterday 02/03 post HD. Will check HD schedule daily for further dosing.
--- NOTE | 2020-02-02 10:20 | NUR ---
PATIENT SEEN BY DR TRINIDAD AND NIKO FROM ID, FULL REPORT GIVEN, PATIENT DISCUSSED. SEE NOTES.
--- NOTE | 2020-02-02 14:50 | NUR ---
PATIENT SEEN BY DR LITTLE, INFORMATION PASSED TO HIM BY ADDITIONAL NURSE IN UNIT DURING THIS NURSES ABSENCE.
[2020-02-02] MEDS: MEROPENEM 500 MG in IV NORMAL SALINE 50 ML IV SCH (17:05)
--- NOTE | 2020-02-02 20:00 | NUR ---
RECEIVED PT ORALLY INTUBATED ON CPAP, FIO2-28%, PSV-8, PEEP-+5 , PT BREATHING 22/MIN, W/ O2 SAT OF 99%.IVF NS @ 10CC/HR VIA TLC ON R FEM. ANAID CATH ON L GROIN. NGT INTACT & PATENT. T-99.0 RECTALLY. REPOSITIONED ON HIS L SIDE W/ HOB ELEVATED.
--- NOTE | 2020-02-02 20:20 | NUR ---
PT RECEIVED ON CPAP, PSV 8, PEEP +5, 28% AND YANI WELL. ADEQUATE VOLUMES OBSERVED WITH VITALS STABLE. ALARMS ON AND AUDIBLE.
[2020-02-03] VITALS (25 sets, daily range): BP systolic 112–154; BP diastolic 55–85
--- NOTE | 2020-02-03 00:15 | NUR ---
PT HAD LARGE PASTY TO SOFT BROWNISH STOOL. BEDBATH GIVEN. SACRAL WOUND CLEANED & APPLIED Z-GUARD CREAM, COVERED W/ MEPILEX DRSG. REPOSITIONED PT ON HIS SIDE W/ HOB ELEVATED.
--- NOTE | 2020-02-03 00:30 | NUR ---
NEPRO VANILLA 200CC GIVEN VIA NGT BY BOLUS SLOWLY.
[2020-02-03] MEDS: IV NORMAL SALINE 250 ML IV PRN (00:42)
[2020-02-03] MEDS: Z GUARD REMEDY PASTE 57 GM TUBE TOP PRN (00:45)
[2020-02-03 05:46] LABS: EOSINOPHILS # (AUTO) 0.1 K/uL (0.0-0.7); EOSINOPHILS % (AUTO) 2.3 % (0.0-7.0); HEMATOCRIT 34.5 % (36.7-47.1); HEMOGLOBIN 11.4 g/dL (12.5-16.3); LYMPHOCYTES # (AUTO) 0.9 K/uL (20.0-40.0); LYMPHOCYTES % (AUTO) 23.8 % (20.5-51.5); MEAN CORPUSCULAR HEMOGLOBIN 29.7 uug (23.8-33.4); MEAN CORPUSCULAR HGB CONC 33 g/dL (32.5-36.3); MEAN CORPUSCULAR VOLUME 89.8 fL (73.0-96.2); MONOCYTES # (AUTO) 0.3 K/uL (2.0-10.0); MONOCYTES % (AUTO) 7.4 % (0.0-11.0); NEUTROPHILS # (AUTO) 2.5 K/uL (1.8-8.9); NEUTROPHILS % (AUTO) 65.5 % (38.5-71.5); PLATELET COUNT (AUTO) 128 K/uL (152-348); RED BLOOD CELL COUNT(AUTO) 3.85 MIL/uL (4.06-5.63); WHITE BLOOD COUNT (AUTO) 3.8 K/uL (3.6-10.2)
[2020-02-03 05:57] LABS: CARBON DIOXIDE 25 mmol/L (21-32); CHLORIDE 101 mmol/L (98-107); GLUCOSE 97 mg/dL (74-106); MAGNESIUM 2.8 mg/dL (1.8-2.4); PHOSPHOROUS 7.6 mg/dL (2.5-4.9); POTASSIUM 3.9 mmol/L (3.5-5.1)
--- NOTE | 2020-02-03 06:00 | NUR ---
had another soft stool mod. amt.cleaned pt. repositioned on his side w/ hob elevated. resp. remains regular & unlabored.
[2020-02-03] MEDS: METOCLOPRAMIDE HCL 10 MG/2 ML VIAL IV SCH ×3 (06:11→21:34)
[2020-02-03] MEDS: NEPRO (VANILLA) 237 ML CAN NG SCH ×4 (06:11→23:36)
[2020-02-03 06:21] LABS: UREA NITROGEN, BLOOD 140 mg/dL (7-18)
[2020-02-03 06:22] LABS: CREATININE 7.8 mg/dL (0.6-1.3)
--- NOTE | 2020-02-03 07:30 | NUR ---
RECIEVED PT ON HEMODIALYSIS IN THE ROOM. TEMP 98.6F HR SR-ST WITH OCCASSIONAL PVC. O2SAT IS 97%. VENT SETTING- CPAP 5, PSV-8. FIO2-28%. NO APPARENT DISTRESS NOTED.
--- NOTE | 2020-02-03 08:00 | NUR ---
ON STRICT COVID-19 ISOLATION PROTOCOL.
[2020-02-03] MEDS ORDERED: ALTEPLASE 2 MG VIAL XX ONE (09:00)
--- NOTE | 2020-02-03 09:30 | NUR ---
HD IS DONE, TOTAL FLUID TAKEN OUT IS 1600. PT TOLERATED.
[2020-02-03] MEDS: FAMOTIDINE 20 MG TABLET GT SCH (09:32)
[2020-02-03] MEDS: ASPIRIN 81 MG TAB.CHEW PO SCH (09:32)
[2020-02-03] MEDS: AMIODARONE HCL 200 MG TABLET PO SCH ×2 (09:32→21:34)
[2020-02-03] MEDS: SEVELAMER CARBONATE 800 MG POWD.PACK NG SCH ×3 (09:34→17:29)
[2020-02-03 10:07] LABS: ABG BASE EXCESS 0.5 mmol/L; ABG HCO3 23.8 mmol/L; ABG PCO2 32.7 mmHg (35.0-45.0); ABG SITE LEFT RADIAL; ABG TOTAL HEMOGLOBIN 8.5 G/dL (13.5-18.0); COHb 1.1 % (0.5-1.5); MetHb 0.3 % (0.0-1.5); O2Hb 97.5 % (94.0-97.0)
[2020-02-03] MEDS: PROTEIN SUPPLEMENT (PROSTAT) 30 ML LIQUID PO SCH ×3 (10:13→17:30)
[2020-02-03 10:27] LABS: VENT MODE VENT - CPAP - PS 8
--- NOTE | 2020-02-03 11:07 | NUR ---
PHARMACY CLINICAL NOTES (VANCOMYCIN DOSING): S: To continue vanco dosing for this 79 YO male on dialysis, with DX of Severe sepsis with septic shock d/t COVID-19 infection with pneumonia; Acute hypoxic respiratory failure, s/p intubation 01/22/2020. O: BUN/SCR 140/7.8 WBC 3.8 Temp 98.7 Vancomycin random (Pre-HD level) on 01/28 at 0445:18.6 Vancomycin random (Pre-HD level) on 01/29 with am labs:17.6 (pre-HD) Vancomycin random (Pre-HD level) on 01/31 with am labs:16.9 (pre-HD) Vancomycin random (Pre-HD level) on 02/02 with am labs: 17.4 A/P: HD today, therefore according to Vancomycin protocol for HD, will dose another Vanco 500mg x 1 post HD today. Will continue to follow HD schedule for further dosing per protocol.
--- NOTE | 2020-02-03 11:30 | NUR ---
SEEN AND EXAMINED BY DR STARKEY WITH NEW ORDERS.
--- NOTE | 2020-02-03 11:45 | NUR ---
SEEN AND EXAMINED BY DR JONES WITH NEW ORDERS. ELIDA TO EXTUBATE.
[2020-02-03] MEDS ORDERED: VANCOMYCIN IV 500 MG in IV DEXTROSE 5% 100 ML IV ONE (13:00)
[2020-02-03] MEDS: MEROPENEM 500 MG in IV NORMAL SALINE 50 ML IV SCH (17:29)
[2020-02-04] VITALS (23 sets, daily range): BP systolic 113–158; BP diastolic 60–94
[2020-02-04] MEDS: IV NORMAL SALINE 250 ML IV PRN (01:47)
[2020-02-04 05:22] LABS: BASOPHILS # (AUTO) 0.1 K/uL (0.0-8.0); BASOPHILS % (AUTO) 0.8 % (0.0-2.0); EOSINOPHILS # (AUTO) 0.2 K/uL (0.0-0.7); EOSINOPHILS % (AUTO) 2.3 % (0.0-7.0); HEMATOCRIT 26.8 % (36.7-47.1); LYMPHOCYTES # (AUTO) 1.7 K/uL (20.0-40.0); LYMPHOCYTES % (AUTO) 19.6 % (20.5-51.5); MEAN CORPUSCULAR HEMOGLOBIN 30.1 uug (23.8-33.4); MEAN CORPUSCULAR HGB CONC 34 g/dL (32.5-36.3); MEAN CORPUSCULAR VOLUME 89.4 fL (73.0-96.2); MONOCYTES # (AUTO) 0.6 K/uL (2.0-10.0); MONOCYTES % (AUTO) 6.6 % (0.0-11.0); NEUTROPHILS # (AUTO) 6.1 K/uL (1.8-8.9); NEUTROPHILS % (AUTO) 70.7 % (38.5-71.5); PLATELET COUNT (AUTO) 208 K/uL (152-348); WHITE BLOOD COUNT (AUTO) 8.6 K/uL (3.6-10.2)
[2020-02-04 05:30] LABS: CARBON DIOXIDE 24 mmol/L (21-32); CHLORIDE 105 mmol/L (98-107); CREATININE 6.9 mg/dL (0.6-1.3); GLUCOSE 105 mg/dL (74-106); MAGNESIUM 2.8 mg/dL (1.8-2.4); PHOSPHOROUS 6.4 mg/dL (2.5-4.9); POTASSIUM 4.2 mmol/L (3.5-5.1)
[2020-02-04 05:32] LABS: UREA NITROGEN, BLOOD 112 mg/dL (7-18)
[2020-02-04] MEDS: METOCLOPRAMIDE HCL 10 MG/2 ML VIAL IV SCH ×3 (05:34→21:15)
[2020-02-04] MEDS: NEPRO (VANILLA) 237 ML CAN NG SCH ×4 (05:35→23:58)
--- NOTE | 2020-02-04 07:54 | NUR ---
PHARMACY CLINICAL NOTES (VANCOMYCIN DOSING): S: To continue vanco dosing for this 79 YO male on dialysis, with DX of Severe sepsis with septic shock d/t COVID-19 infection with pneumonia; Acute hypoxic respiratory failure, s/p intubation 01/22/2020. O: BUN/SCR 112/6.9 WBC 8.6 Temp 99.1 Vancomycin random (Pre-HD level) on 01/28 at 0445:18.6 Vancomycin random (Pre-HD level) on 01/29 with am labs:17.6 (pre-HD) Vancomycin random (Pre-HD level) on 01/31 with am labs:16.9 (pre-HD) Vancomycin random (Pre-HD level) on 02/02 with am labs: 17.4 Vancomycin random (Pre-HD level) on 02/03 with am labs: 21.5 A/P: HD has been scheduled for today. According to Vancomycin protocol for HD, No dose shall be due today post HD since pre-HD level is above 20 mcg/ml. Will continue to follow HD schedule for further dosing per protocol.
[2020-02-04] MEDS: SEVELAMER CARBONATE 800 MG POWD.PACK NG SCH ×3 (08:00→17:02)
[2020-02-04 08:23] LABS: ABG BASE EXCESS -2.1 mmol/L; ABG PCO2 29.2 mmHg (35.0-45.0); ABG PH 7.474 (7.350-7.450); ABG PO2 165.1 mmHg (75.0-100.0); ABG SITE LEFT RADIAL; ABG TOTAL HEMOGLOBIN 8.1 G/dL (13.5-18.0); COHb 0.8 % (0.5-1.5); MetHb 0.3 % (0.0-1.5); O2Hb 98.1 % (94.0-97.0); VENT MODE Nasal Cannula
--- NOTE | 2020-02-04 09:00 | NUR ---
RENVELA MEDICATION HELD DUE TO PATIENT RECEIVING DIALYSIS.
[2020-02-04] MEDS: ASPIRIN 81 MG TAB.CHEW PO SCH (09:03)
[2020-02-04] MEDS: AMIODARONE HCL 200 MG TABLET PO SCH ×2 (09:03→21:02)
[2020-02-04] MEDS: PROTEIN SUPPLEMENT (PROSTAT) 30 ML LIQUID PO SCH ×3 (09:03→17:02)
[2020-02-04] MEDS: FAMOTIDINE 20 MG TABLET GT SCH (09:03)
--- NOTE | 2020-02-04 11:00 | NUR ---
ATTENDING MD DR. SUNG IN THE UNIT. FULL REPORT GIVEN TO DR. SUNG, SEE ORDER HISTORY FOR NEW ORDERS.
--- NOTE | 2020-02-04 13:00 | NUR ---
ID SERVICES FARAZ KHOURY IN THE UNIT. FULL REPORT GIVEN TO FARAZ KHOURY, SEE ORDER HISTORY FOR NEW ORDERS.
[2020-02-04] MEDS: ACETAMINOPHEN 650 MG/20.3 ML LIQUID UDC NG PRN (13:44)
[2020-02-05] VITALS (24 sets, daily range): BP systolic 120–149; BP diastolic 55–88
[2020-02-05 05:24] LABS: CARBON DIOXIDE 28 mmol/L (21-32); CHLORIDE 104 mmol/L (98-107); CREATININE 5.4 mg/dL (0.6-1.3); GLUCOSE 106 mg/dL (74-106); MAGNESIUM 2.7 mg/dL (1.8-2.4); PHOSPHOROUS 5.8 mg/dL (2.5-4.9); POTASSIUM 4.2 mmol/L (3.5-5.1)
[2020-02-05 05:30] LABS: UREA NITROGEN, BLOOD 93 mg/dL (7-18)
[2020-02-05 05:35] LABS: BASOPHILS # (AUTO) 0.1 K/uL (0.0-8.0); BASOPHILS % (AUTO) 0.8 % (0.0-2.0); EOSINOPHILS # (AUTO) 0.1 K/uL (0.0-0.7); HEMATOCRIT 25.6 % (36.7-47.1); HEMOGLOBIN 8.7 g/dL (12.5-16.3); LYMPHOCYTES # (AUTO) 1.3 K/uL (20.0-40.0); LYMPHOCYTES % (AUTO) 19.5 % (20.5-51.5); MEAN CORPUSCULAR HEMOGLOBIN 30.5 uug (23.8-33.4); MEAN CORPUSCULAR HGB CONC 34 g/dL (32.5-36.3); MEAN CORPUSCULAR VOLUME 89.6 fL (73.0-96.2); MONOCYTES # (AUTO) 0.6 K/uL (2.0-10.0); MONOCYTES % (AUTO) 8.4 % (0.0-11.0); NEUTROPHILS # (AUTO) 4.6 K/uL (1.8-8.9); NEUTROPHILS % (AUTO) 69.3 % (38.5-71.5); PLATELET COUNT (AUTO) 169 K/uL (152-348); RED BLOOD CELL COUNT(AUTO) 2.85 MIL/uL (4.06-5.63); WHITE BLOOD COUNT (AUTO) 6.6 K/uL (3.6-10.2)
[2020-02-05] MEDS: METOCLOPRAMIDE HCL 10 MG/2 ML VIAL IV SCH ×3 (05:35→21:21)
[2020-02-05] MEDS: NEPRO (VANILLA) 237 ML CAN NG SCH ×4 (05:35→23:53)
--- NOTE | 2020-02-05 08:00 | NUR ---
NEPHROLOGY SERVICES DR. OSBORNE IN THE UNIT. FULL REPORT GIVEN TO DR. OSBORNE, SEE ORDER HISTORY FOR NEW ORDERS.
[2020-02-05] MEDS: SEVELAMER CARBONATE 800 MG POWD.PACK NG SCH ×3 (08:52→17:36)
[2020-02-05] MEDS: FAMOTIDINE 20 MG TABLET GT SCH (08:55)
[2020-02-05] MEDS: ASPIRIN 81 MG TAB.CHEW PO SCH (08:55)
[2020-02-05] MEDS: PROTEIN SUPPLEMENT (PROSTAT) 30 ML LIQUID PO SCH ×3 (08:56→17:36)
[2020-02-05] MEDS: AMIODARONE HCL 200 MG TABLET PO SCH ×2 (08:56→21:21)
--- NOTE | 2020-02-05 09:30 | NUR ---
PULMONOLOGY SERVICES DR. TRINIDAD IN THE UNIT. FULL REPORT GIVEN TO DR. TRINIDAD, SEE ORDER HISTORY FOR NEW ORDERS. DR. TRINIDAD AT BEDSIDE ASSESSING PATIENT.
--- NOTE | 2020-02-05 10:30 | NUR ---
PHARMACY CLINICAL NOTES (VANCOMYCIN DOSING): S: To continue vanco dosing for this 79 YO male on dialysis, with DX of Severe sepsis with septic shock d/t COVID-19 infection with pneumonia; Acute hypoxic respiratory failure, s/p intubation 01/22/2020. O: BUN/SCR 93/5.4 WBC 6.6 Temp 99.1 Vancomycin random (Pre-HD level) on 01/28 at 0445:18.6 Vancomycin random (Pre-HD level) on 01/29 with am labs:17.6 (pre-HD) Vancomycin random (Pre-HD level) on 01/31 with am labs:16.9 (pre-HD) Vancomycin random (Pre-HD level) on 02/02 with am labs: 17.4 Vancomycin random (Pre-HD level) on 02/03 with am labs: 21.5 A/P: No HD scheduled for today. According to Vancomycin protocol for HD, no dose for today. Last dose given on 02/02 (500mg x1 post HD). Will continue to follow HD schedule for further dosing per protocol.
[2020-02-05] MEDS: IPRATROPIUM BROMIDE 0.5 MG/2.5 ML NEBU NEB SCH ×2 (12:42→20:09)
[2020-02-05] MEDS: ACETYLCYSTEINE 20% 800 MG/4 ML VIAL PO SCH ×2 (12:43→20:09)
--- NOTE | 2020-02-05 13:00 | NUR ---
ATTENDING MD DR. SUNG IN THE UNIT. FULL REPORT GIVEN TO DR. SUNG , SEE RODER HISTORY FOR NEW ORDERS.
--- NOTE | 2020-02-05 19:20 | NUR ---
Received patient in semifowlers position in bed. Patient is no longer intubated and is on a nasal cannula on 1L O2 with saturation of 99-100%. Patient's color looks great and opens eyes to voice. Galicia catheter still in place draining clear yenifer urine. Right femoral central line 3-lumen in place. Left groin yuval catheter in place. patient is afebrile and vital signs stable. No signs of distress noted.
[2020-02-06] VITALS (22 sets, daily range): BP systolic 100–143; BP diastolic 59–71
[2020-02-06] MEDS: ACETYLCYSTEINE 20% 800 MG/4 ML VIAL PO SCH ×4 (01:08→19:30)
--- NOTE | 2020-02-06 04:00 | NUR ---
Right femoral central line dressing changed. No signs of infection noted. All three lumens flushed well without resistance.
[2020-02-06 05:55] LABS: BASOPHILS % (AUTO) 0.6 % (0.0-2.0); EOSINOPHILS # (AUTO) 0.2 K/uL (0.0-0.7); EOSINOPHILS % (AUTO) 2.7 % (0.0-7.0); HEMATOCRIT 25.8 % (36.7-47.1); HEMOGLOBIN 8.5 g/dL (12.5-16.3); LYMPHOCYTES # (AUTO) 1.2 K/uL (20.0-40.0); LYMPHOCYTES % (AUTO) 20.4 % (20.5-51.5); MEAN CORPUSCULAR HEMOGLOBIN 29.8 uug (23.8-33.4); MEAN CORPUSCULAR HGB CONC 33 g/dL (32.5-36.3); MEAN CORPUSCULAR VOLUME 90.5 fL (73.0-96.2); MONOCYTES # (AUTO) 0.5 K/uL (2.0-10.0); MONOCYTES % (AUTO) 8.1 % (0.0-11.0); NEUTROPHILS # (AUTO) 4.1 K/uL (1.8-8.9); NEUTROPHILS % (AUTO) 68.2 % (38.5-71.5); PLATELET COUNT (AUTO) 169 K/uL (152-348); RED BLOOD CELL COUNT(AUTO) 2.85 MIL/uL (4.06-5.63)
[2020-02-06 06:15] LABS: CARBON DIOXIDE 28 mmol/L (21-32); CHLORIDE 103 mmol/L (98-107); GLUCOSE 99 mg/dL (74-106); MAGNESIUM 2.9 mg/dL (1.8-2.4); POTASSIUM 4.2 mmol/L (3.5-5.1)
[2020-02-06 06:20] LABS: UREA NITROGEN, BLOOD 114 mg/dL (7-18)
[2020-02-06] MEDS: METOCLOPRAMIDE HCL 10 MG/2 ML VIAL IV SCH ×3 (06:22→21:18)
[2020-02-06] MEDS: NEPRO (VANILLA) 237 ML CAN NG SCH ×3 (06:23→17:07)
[2020-02-06] MEDS: IPRATROPIUM BROMIDE 0.5 MG/2.5 ML NEBU NEB SCH ×3 (07:24→19:30)
[2020-02-06] MEDS: LEVALBUTEROL HCL NEB 0.63 MG/3 ML NEBU NEB PRN ×2 (07:24→14:20)
[2020-02-06] MEDS: SEVELAMER CARBONATE 800 MG POWD.PACK NG SCH ×3 (08:03→17:07)
[2020-02-06] MEDS: PROTEIN SUPPLEMENT (PROSTAT) 30 ML LIQUID PO SCH ×3 (08:05→17:07)
[2020-02-06] MEDS: FAMOTIDINE 20 MG TABLET GT SCH (08:05)
[2020-02-06] MEDS: ASPIRIN 81 MG TAB.CHEW PO SCH (08:05)
[2020-02-06] MEDS: AMIODARONE HCL 200 MG TABLET PO SCH ×2 (08:05→20:35)
--- NOTE | 2020-02-06 09:00 | NUR ---
ID SERVICES NIKO BENEFITS COUNSELOR IN THE UNIT. FULL REPORT GIVEN TO NIKO, SEE ORDER HISTORY FOR NEW ORDERS.
--- NOTE | 2020-02-06 10:00 | NUR ---
PULMONARY SERVICES DR. TRINIDAD IN THE UNIT. FULL REPORT GIVEN TO DR. TRINIDAD, SEE ORDER HISTORY FOR NEW ORDERS. DR. TRINIDAD ASSESSING PATIENT AT THE BEDSIDE.
--- NOTE | 2020-02-06 14:28 | NUR ---
PHARMACY CLINICAL NOTES (VANCOMYCIN DOSING): S: To continue vanco dosing for this 79 YO male on dialysis, with DX of Severe sepsis with septic shock d/t COVID-19 infection with pneumonia; Acute hypoxic respiratory failure, s/p intubation 01/22/2020. O: BUN/SCR 93/5.4 WBC 6.6 Temp 99.1 Vancomycin random (Pre-HD level) on 01/28 at 0445:18.6 Vancomycin random (Pre-HD level) on 01/29 with am labs:17.6 (pre-HD) Vancomycin random (Pre-HD level) on 01/31 with am labs:16.9 (pre-HD) Vancomycin random (Pre-HD level) on 02/02 with am labs: 17.4 Vancomycin random (Pre-HD level) on 02/03 with am labs: 21.5 A/P: HD scheduled for today. Vancomycin pre-HD level is on order for further dosing(last dose given on 02/02 (500mg x1 post HD) Will follow the level. Will continue to follow HD schedule for further dosing per protocol. Addendum: 02/06/20 at 1604 by YUSUF SHAH ADM VANCOMYCIN PRE HD LEVEL WAS 14.1 TODAY AT 0430 WILL ADMINISTER 1 GRAM TODAY POST HD.
--- NOTE | 2020-02-06 15:00 | NUR ---
CARDIOLOGY SERVICES DR. SULLIVAN IN THE UNIT. FULL REPORT GIVEN TO DR. SULLIVAN SEE ORDER HISTORY FOR NEW ORDERS.
[2020-02-06] MEDS ORDERED: VANCOMYCIN IV 1,000 MG in IV DEXTROSE 5% 250 ML IV ONE (17:00)
--- NOTE | 2020-02-06 18:00 | NUR ---
ATTENDING MD DR. LUGO IN THE UNIT, FULL REPORT GIVEN TO DR. LUGO, SEE ORDER HISTORY FOR NEW ORDERS.
--- NOTE | 2020-02-06 20:30 | NUR ---
rounds made patient in bed open eyes to name but doesn't follow commands .sr on the heart monitor . room air tolerating saturation 97 % rr 20.right nare ngt clamp . flushed patent .f/c to bsd . hob up .continue to monitor v/s and levels of comfort .right tlc with tko normal saline left femoral Alexis catheter intact .
--- NOTE | 2020-02-06 21:30 | NUR ---
turned and reposition patient ,offloaded back with pillow , oral care done .temp 99.0 rectally . no s/s/ of pain .
[2020-02-06] MEDS: IV NORMAL SALINE 250 ML IV PRN (22:38)
[2020-02-07] VITALS (10 sets, daily range): BP systolic 104–137; BP diastolic 55–84
--- NOTE | 2020-02-07 | NUR ---
Nepro given 1 can via the right nare ngt , tolerated ,flushed ngt . aspiration precaution observed.turned and reposition . continue to observed covid 19 isolation .
[2020-02-07] MEDS: NEPRO (VANILLA) 237 ML CAN NG SCH ×4 (00:47→18:05)
[2020-02-07] MEDS: ACETYLCYSTEINE 20% 800 MG/4 ML VIAL PO SCH ×2 (00:58→08:45)
--- NOTE | 2020-02-07 03:50 | NUR ---
am care done ,bath patient ,f/c done,photo taken on patient sacral area ,bilateral ears and right lateral foot . see chart for photo .scds used and patient on kCi .hydrogel and z guard applied to sacral area and ears offloaded .
[2020-02-07] MEDS: METOCLOPRAMIDE HCL 10 MG/2 ML VIAL IV SCH ×3 (05:33→22:34)
[2020-02-07 05:40] LABS: CARBON DIOXIDE 28 mmol/L (21-32); CHLORIDE 105 mmol/L (98-107); GLUCOSE 106 mg/dL (74-106); MAGNESIUM 2.8 mg/dL (1.8-2.4); PHOSPHOROUS 5.9 mg/dL (2.5-4.9); POTASSIUM 4.2 mmol/L (3.5-5.1)
[2020-02-07 06:12] LABS: UREA NITROGEN, BLOOD 104 mg/dL (7-18)
[2020-02-07 06:27] LABS: BASOPHILS % (AUTO) 0.7 % (0.0-2.0); EOSINOPHILS # (AUTO) 0.2 K/uL (0.0-0.7); HEMATOCRIT 24.9 % (36.7-47.1); HEMOGLOBIN 8.4 g/dL (12.5-16.3); LYMPHOCYTES % (AUTO) 19.5 % (20.5-51.5); MEAN CORPUSCULAR HEMOGLOBIN 30.3 uug (23.8-33.4); MEAN CORPUSCULAR HGB CONC 34 g/dL (32.5-36.3); MEAN CORPUSCULAR VOLUME 89.8 fL (73.0-96.2); MONOCYTES # (AUTO) 0.5 K/uL (2.0-10.0); MONOCYTES % (AUTO) 9.5 % (0.0-11.0); NEUTROPHILS # (AUTO) 3.6 K/uL (1.8-8.9); NEUTROPHILS % (AUTO) 67.3 % (38.5-71.5); PLATELET COUNT (AUTO) 152 K/uL (152-348); RED BLOOD CELL COUNT(AUTO) 2.77 MIL/uL (4.06-5.63); WHITE BLOOD COUNT (AUTO) 5.3 K/uL (3.6-10.2)
[2020-02-07 06:37] LABS: CREATININE 5.3 mg/dL (0.6-1.3)
[2020-02-07 07:10] LABS: FERRITIN 439 ng/mL (26-388); LACTATE DEHYDROGENASE 325 U/L (85-227)
--- NOTE | 2020-02-07 07:30 | NUR ---
RECIEVED PT LYING IN BED WITH HOB 35DEGREES UP. EYES OPENS BUT NON VERBAL. ALL EXTREMETIES ARE GENERALLY WEAK. HR IS SR-ST WITH OCCASSIONAL PVC'S. TEMP-99.2F. O2 SAT IS 97% ON RA. VERY SMALL AMOUNT OF ORAL SECRETIONS. RIGHT FEMORALM LINE IS CLEAN AND PATENT. ANAID CATH ON THE LEFT FEMORAL GROIN INTACT FOR HD.
[2020-02-07] MEDS: SEVELAMER CARBONATE 800 MG POWD.PACK NG SCH ×3 (08:14→18:05)
[2020-02-07] MEDS: ASPIRIN 81 MG TAB.CHEW PO SCH (08:15)
[2020-02-07] MEDS: FAMOTIDINE 20 MG TABLET GT SCH (08:15)
[2020-02-07] MEDS: PROTEIN SUPPLEMENT (PROSTAT) 30 ML LIQUID PO SCH ×3 (08:15→17:00)
[2020-02-07] MEDS: AMIODARONE HCL 200 MG TABLET PO SCH ×2 (08:15→22:34)
--- NOTE | 2020-02-07 08:30 | NUR ---
REPOSITION PT. MEDICATION GIVEN VIA NGT RIGHT NOSTRIL. TYLENOL 650MG LIQUID GIVEN.
[2020-02-07] MEDS: IPRATROPIUM BROMIDE 0.5 MG/2.5 ML NEBU NEB SCH (08:45)
[2020-02-07] MEDS: ACETAMINOPHEN 650 MG/20.3 ML LIQUID UDC NG PRN (08:54)
--- NOTE | 2020-02-07 09:00 | NUR ---
SEEN AND EXAMINED BY DR TRINIDAD WITH NEW ORDERS.
[2020-02-07] MEDS ORDERED: ACETYLCYSTEINE 20% 800 MG/4 ML VIAL PO PRN (10:15)
[2020-02-07] MEDS ORDERED: IPRATROPIUM BROMIDE 0.5 MG/2.5 ML NEBU NEB PRN (10:15)
--- NOTE | 2020-02-07 12:11 | NUR ---
PHARMACY CLINICAL NOTES (VANCOMYCIN DOSING): S: To continue vanco dosing for this 79 YO male on dialysis, with DX of Severe sepsis with septic shock d/t COVID-19 infection with pneumonia; Acute hypoxic respiratory failure, s/p intubation 01/22/2020. O: BUN/SCR 93/5.4 WBC 6.6 Temp 99.1 Vancomycin random (Pre-HD level) on 01/28 at 0445:18.6 Vancomycin random (Pre-HD level) on 01/29 with am labs:17.6 (pre-HD) Vancomycin random (Pre-HD level) on 01/31 with am labs:16.9 (pre-HD) Vancomycin random (Pre-HD level) on 02/02 with am labs: 17.4 Vancomycin random (Pre-HD level) on 02/03 with am labs: 21.5 Vancomycin random (pre-HD level) on 02/05 with am labs:14.1 A/P: Since HD is not scheduled, no dose will be given today(1 gram was given yesterday at 1700 post HD). Will continue to follow HD schedule for further dosing per protocol.
--- NOTE | 2020-02-07 13:00 | NUR ---
TOLREATED TUBE FEEDING BOLUSES WELL.
--- NOTE | 2020-02-07 15:00 | NUR ---
PT TRANSFERRED TO [facility] VIA BED AND USING GOOD ISOLATION TECHNIQUE. CONDITION IS STABLE.
--- NOTE | 2020-02-07 20:00 | NUR ---
Patient received into care laying in bed, resting comfortably. Patient is alert/oriented x1 and has no s/s of acute distress/discomfort noted or observed by nurse. All safety, fall, and isolation precautions are in place. Call light and personal items are within reach at all times. Will continue to monitor and assess.
[2020-02-08] MEDS: NEPRO (VANILLA) 237 ML CAN NG SCH ×5 (00:08→23:06)
[2020-02-08 00:18] VITALS: BP 126/78
[2020-02-08 04:18] VITALS: BP 149/86
--- NOTE | 2020-02-08 06:00 | NUR ---
PATIENT SLEPT INTERMITTENTLY THROUGHOUT NIGHT WITH NO S/S OF ACUTE DISTRESS/DISCOMFORT NOTED/OBSERVED BY NURSE. INCREASED ORAL TEMPERATURE WAS ADDRESSED WITH COOLING MEASURES AND PRESCRIBED ACETAMINOPHEN. ALL NURSING NEEDS WERE MET AND PATIENT IS WARM, DRY, AND COMFORTABLE. ALL SAFETY, FALL, AND ISOLATION PRECAUTIONS REMAIN IN PLACE. CALL LIGHT AND PERSONAL ITEMS REMAIN WITHIN REACH AT ALL TIMES. Addendum: 02/08/20 at 0703 by ESTEFANI SILVA RN PATIENT DID NOT HAVE INCREASED TEMPERATURE DURING THIS SHIFT
[2020-02-08] MEDS: METOCLOPRAMIDE HCL 10 MG/2 ML VIAL IV SCH ×3 (06:33→21:02)
--- NOTE | 2020-02-08 07:45 | NUR ---
Received patient in bed with Dialysis Nurse at Bedside. Per Dialysis Nurse, No output d/t Alexis Catheter Clogged. No signs of distress noted. No SOB. No signs of Pain or discomfort. On Contact and droplet precaution for (+) covid, Proper PPE strictly Observed. NGT intact and Patent. Abdomen Soft and non distended Kept clean and comfortable. Will continue to monitor.
[2020-02-08] MEDS ORDERED: ALTEPLASE 2 MG VIAL IVP ONE (08:30)
--- NOTE | 2020-02-08 08:30 | NUR ---
Alteplase given by Dialysis Nurse.
[2020-02-08] MEDS: PROTEIN SUPPLEMENT (PROSTAT) 30 ML LIQUID PO SCH ×3 (08:48→17:29)
[2020-02-08] MEDS: SEVELAMER CARBONATE 800 MG POWD.PACK NG SCH ×3 (08:48→17:29)
[2020-02-08] MEDS: ASPIRIN 81 MG TAB.CHEW PO SCH (08:48)
[2020-02-08] MEDS: FAMOTIDINE 20 MG TABLET GT SCH (08:48)
[2020-02-08] MEDS: AMIODARONE HCL 200 MG TABLET PO SCH ×2 (08:49→21:03)
--- NOTE | 2020-02-08 09:13 | NUR ---
PHARMACY CLINICAL NOTES (VANCOMYCIN DOSING): S: To continue vanco dosing for this 79 YO male on dialysis, with DX of Severe sepsis with septic shock d/t COVID-19 infection with pneumonia; Acute hypoxic respiratory failure, s/p intubation 01/22/2020. O: BUN/SCR 104/5.3 (02/06) WBC 5.3 (02/06) Temp 98.3 Vancomycin random (Pre-HD level) on 01/28 at 0445:18.6 Vancomycin random (Pre-HD level) on 01/29 with am labs:17.6 (pre-HD) Vancomycin random (Pre-HD level) on 01/31 with am labs:16.9 (pre-HD) Vancomycin random (Pre-HD level) on 02/02 with am labs: 17.4 Vancomycin random (Pre-HD level) on 02/03 with am labs: 21.5 Vancomycin random (pre-HD level) on 02/05 with am labs:14.1 A/P: Per HD nurse, HD was one only for 40 mins this am but line got occluded & HD was stopped. Per HD nurse, they will give cathflo & do HD tomorrow. Thus, no dose will be given today. Will continue to follow HD schedule for further dosing per protocol.
[2020-02-08 11:00] VITALS: BP 137/68
[2020-02-08 15:58] VITALS: BP 144/78
--- NOTE | 2020-02-08 18:17 | NUR ---
Patient in bed, No signs of distress noted. No SOB. On Room Air saturating 96%. No complain of Pain or discomfort. Remains on Contact and droplet Isolation for Positive covid 19, Proper PPE strictly Observed. NGT Feeding tolerating well, Abdomen soft and non distended. BM x 2 (soft) noted. Galicia catheter draining with yellow Urine with output of 1000ml. kept the call light within easy reach. Kept clean and comfortable. Will endorse to Oncoming Nurse.
--- NOTE | 2020-02-08 19:20 | NUR ---
Received patient lying in bed. Awake, non-verbal. In no acute distress. O2 sat at 96%. No coughing observed at this time. NSR on tele with PVC's at 100/min. VS WNL. Right groin central line intact and patent. Left groin Alexis cath intact. Left hand IV site intact. Galicia catheter intact. Contact and droplet precaution observed. Safety measure initiated and call morton within reach.
[2020-02-08 20:00] VITALS: BP 119/62
[2020-02-09] VITALS: BP 122/61
[2020-02-09 04:00] VITALS: BP 123/57
[2020-02-09] MEDS: METOCLOPRAMIDE HCL 10 MG/2 ML VIAL IV SCH ×3 (06:20→21:00)
[2020-02-09] MEDS: NEPRO (VANILLA) 237 ML CAN NG SCH ×3 (06:20→17:04)
--- NOTE | 2020-02-09 07:35 | NUR ---
PHARMACY CLINICAL NOTES (VANCOMYCIN DOSING): S: To continue vanco dosing for this 79 YO male on dialysis, with DX of Severe sepsis with septic shock d/t COVID-19 infection with pneumonia; Acute hypoxic respiratory failure, s/p intubation 01/22/2020. O: BUN/SCR 104/5.3 (02/06) WBC 5.3 (02/06) Temp 98.5 Vancomycin random (Pre-HD level) on 01/28 at 0445:18.6 Vancomycin random (Pre-HD level) on 01/29 with am labs:17.6 (pre-HD) Vancomycin random (Pre-HD level) on 01/31 with am labs:16.9 (pre-HD) Vancomycin random (Pre-HD level) on 02/02 with am labs: 17.4 Vancomycin random (Pre-HD level) on 02/03 with am labs: 21.5 Vancomycin random (pre-HD level) on 02/05 with am labs:14.1 Vancomycin random (pre-HD level) on 02/08 with am labs:17.5 A/P: Per HD nurse, HD is due today. Since pre-HD level is 17.5 Vanco 500mg IVPB x1 will be given today post HD. Will continue to follow HD schedule for further dosing per protocol.
--- NOTE | 2020-02-09 08:20 | NUR ---
Received patient in bed, No signs of distress noted. No SOB. Saturating 96% on Room Air. No signs of Pain or discomfort. Afebrile with temperature of 98.3 F, Remains on contact and droplet Isolation for positive covid 19, Proper PPE strictly Observed. Galicia catheter intact and patent draining clear yellow Urine. NGT intact and patent. Galicia catheter care provided. Kept clean and comfortable. Will continue to monitor.
[2020-02-09] MEDS: AMIODARONE HCL 200 MG TABLET PO SCH ×2 (08:24→20:42)
[2020-02-09] MEDS: FAMOTIDINE 20 MG TABLET GT SCH (08:24)
[2020-02-09] MEDS: SEVELAMER CARBONATE 800 MG POWD.PACK NG SCH ×3 (08:24→17:03)
[2020-02-09] MEDS: PROTEIN SUPPLEMENT (PROSTAT) 30 ML LIQUID PO SCH ×3 (08:24→17:03)
[2020-02-09] MEDS: ASPIRIN 81 MG TAB.CHEW PO SCH (08:24)
[2020-02-09 09:58] LABS: BASOPHILS # (AUTO) 0.1 K/uL (0.0-8.0); BASOPHILS % (AUTO) 1.2 % (0.0-2.0); HEMOGLOBIN 8.3 g/dL (12.5-16.3); MONOCYTES # (AUTO) 0.4 K/uL (2.0-10.0); WHITE BLOOD COUNT (AUTO) 4.6 K/uL (3.6-10.2)
[2020-02-09 09:59] VITALS: BP 119/62
[2020-02-09 10:00] LABS: ALANINE AMINOTRANSFERASE 57 U/L (16-63); ALKALINE PHOSPHATASE 141 U/L (50-136); ASPARTATE AMINOTRANSFERASE 72 U/L (15-37); BILIRUBIN,TOTAL 0.5 mg/dL (0.2-1.0); CARBON DIOXIDE 25 mmol/L (21-32); CHLORIDE 112 mmol/L (98-107); CREATININE 5.2 mg/dL (0.6-1.3); GLUCOSE 109 mg/dL (74-106); MAGNESIUM 3.3 mg/dL (1.8-2.4); PHOSPHOROUS 6.2 mg/dL (2.5-4.9)
[2020-02-09 10:03] LABS: EOSINOPHILS # (AUTO) 0.1 K/uL (0.0-0.7); EOSINOPHILS % (AUTO) 3.2 % (0.0-7.0); HEMATOCRIT 25.4 % (36.7-47.1); LYMPHOCYTES % (AUTO) 22.2 % (20.5-51.5); MEAN CORPUSCULAR HEMOGLOBIN 29.8 uug (23.8-33.4); MEAN CORPUSCULAR HGB CONC 33 g/dL (32.5-36.3); MEAN CORPUSCULAR VOLUME 91.2 fL (73.0-96.2); MONOCYTES % (AUTO) 8.4 % (0.0-11.0); PLATELET COUNT (AUTO) 150 K/uL (152-348); RED BLOOD CELL COUNT(AUTO) 2.78 MIL/uL (4.06-5.63)
[2020-02-09 10:07] LABS: UREA NITROGEN, BLOOD 123 mg/dL (7-18)
--- NOTE | 2020-02-09 12:53 | NUR ---
Quarry Manager Consultation: 11:50am: PARKER called patient's daughter Arielle [phone]. Per consultation, patient's daughter wanted to discuss burial options and resources for the patient. Arielle was available and receptive to speaking with this SW. Arielle stated that she had spoken to patient's physician Dr. Jones yesterday, who had discussed different treatment options and levels of care for the patient, and that she and her sister are trying to decide whether they wanted to continue aggressive treatment with dialysis, or choose palliative/hospice care. PARKER allowed Arielle to express her thoughts about both options. PARKER then generated a discussion about quality of care vs quantity of care, provided further education on palliative/hospice care, which could be arranged for the patient at [facility] where patient was residing prior to this hospitalization. Arielle was receptive to this discussion, but still had some questions about having hospice care at the hospital vs at [facility]. PARKER stated that her question would be better addressed by the patient's physician, and that PARKER would let the Supervisor Detasseling Crew and patient's physician know about this question. Arielle then asked this SW about visitation guidelines for the hospital, given the current COVID-19 pandemic. PARKER stated that currently no visitors were allowed at the hospital, however the hospital was offering the option of video chat for the patient's families. Arielle stated that her sister who lives in [place] was hoping to come see the patient, if they choose palliative care for the patient. PARKER stated that PARKER would inform Supervisor Detasseling Crew Reyna about the family's request for visitation, and that either PARKER or Supervisor Detasseling Crew would get back to Arielle regarding the visitation guidelines. Arielle expressed understanding. Arielle then expressed her concerns about burial arrangements and costs, stating that she, nor her siblings, would be able to afford burial costs for the patient, and that the patient did not have any finances either, except for her social security income. PARKER discussed options of burial vs cremation, however Arielle then asked about information pertaining to the County covering burial costs. PARKER provided Arilele with the [facility] and suggested for Arielle to contact them to ask about the process of releasing the remains of the to them, and if there were any expenses involved in this process. PARKER informed Arielle that no matter what facility patient expires in, there will be PARKER and/or a catalytic case operator who could assist Arielle with coordinating the arrangements with the [facility], however Arielle would be the next of kin who would need to assist in the process instructed by the [facility]. Arielle thanked this PARKER for her time and information provided. PARKER then spoke with Supervisor Detasseling Crew Reyna, and reported all above to her. Reyna stated that she will speak with Dr. Jones and that they would then follow up with Arielle regarding Arielle's questions pertaining to visitation and Arielle's decision on treatment options.
--- NOTE | 2020-02-09 13:30 | NUR ---
Patient was dialyzed today with Output of 1.2L.
[2020-02-09] MEDS ORDERED: VANCOMYCIN IV 500 MG in IV DEXTROSE 5% 100 ML IV ONE (14:00)
[2020-02-09 16:31] VITALS: BP 109/50
--- NOTE | 2020-02-09 19:08 | NUR ---
patient in bed, open eyes. No signs of distress noted. No SOB. saturating 97% on Room Air. No signs of Pain or discomfort. Afebrile. benitez catheter draining with yellow urine. patient was dialyzed today with 1.2L output. 2nd covid test done. NGT tolerated well. All. due medication given as ordered. Kept clean and comfortable. Will endorse to Oncoming Nurse.
[2020-02-09 19:10] VITALS: BP 113/58
--- NOTE | 2020-02-09 19:20 | NUR ---
Received patient lying in bed. Awake, non-verbal. In no acute distress. O2 sat at 96%. No coughing observed at this time. NGT intact and patent. Sinus tachy on tele with PVC's at 103/min. Right groin central line intact and patent. Left groin Alexis cath intact. Galicia catheter intact. Contact and droplet precaution observed. Safety measure initiated and call morton within reach.
[2020-02-09] MEDS: ACETAMINOPHEN 650 MG/20.3 ML LIQUID UDC NG PRN (20:40)
--- NOTE | 2020-02-09 21:00 | NUR ---
Cooling measure provided. Continue to monitor.
[2020-02-10] MEDS: NEPRO (VANILLA) 237 ML CAN NG SCH ×4 (00:08→16:24)
[2020-02-10 01:59] VITALS: BP 133/70
[2020-02-10] MEDS: METOCLOPRAMIDE HCL 10 MG/2 ML VIAL IV SCH ×3 (05:10→21:43)
[2020-02-10] MEDS: ACETAMINOPHEN 650 MG/20.3 ML LIQUID UDC NG PRN ×2 (05:10→21:43)
--- NOTE | 2020-02-10 05:36 | NUR ---
CXR done at bedside.
[2020-02-10 06:01] VITALS: BP 127/61
--- NOTE | 2020-02-10 06:20 | NUR ---
Awake, non-verbal, opens eyes to tactile stimuli. In no acute distress. O2 sat at 99%. Suction secretions PRN. NGT intact and patent. NSR on tele with occasional PVC's at 100/min. Right groin central line intact and patent. Left groin Alexis cath intact. Galicia catheter intact and draining via gravity. Contact and droplet precaution maintained. Continue with cooling measures. Latest temp. 99.2. Safety measure maintained and call morton within reach.
[2020-02-10] MEDS: SEVELAMER CARBONATE 800 MG POWD.PACK NG SCH ×3 (08:59→16:24)
[2020-02-10] MEDS: PROTEIN SUPPLEMENT (PROSTAT) 30 ML LIQUID PO SCH ×3 (09:00→16:24)
[2020-02-10] MEDS: AMIODARONE HCL 200 MG TABLET PO SCH ×2 (09:01→21:43)
[2020-02-10] MEDS: ASPIRIN 81 MG TAB.CHEW PO SCH (09:01)
[2020-02-10] MEDS: FAMOTIDINE 20 MG TABLET GT SCH (09:01)
[2020-02-10 09:03] LABS: BASOPHILS # (AUTO) 0.1 K/uL (0.0-8.0); BASOPHILS % (AUTO) 1.4 % (0.0-2.0); EOSINOPHILS # (AUTO) 0.2 K/uL (0.0-0.7); EOSINOPHILS % (AUTO) 3.8 % (0.0-7.0); HEMATOCRIT 24.9 % (36.7-47.1); HEMOGLOBIN 8.2 g/dL (12.5-16.3); LYMPHOCYTES % (AUTO) 23.8 % (20.5-51.5); MEAN CORPUSCULAR HGB CONC 33 g/dL (32.5-36.3); MONOCYTES # (AUTO) 0.4 K/uL (2.0-10.0); MONOCYTES % (AUTO) 9.5 % (0.0-11.0); NEUTROPHILS # (AUTO) 2.5 K/uL (1.8-8.9); NEUTROPHILS % (AUTO) 61.5 % (38.5-71.5); PLATELET COUNT (AUTO) 126 K/uL (152-348); RED BLOOD CELL COUNT(AUTO) 2.74 MIL/uL (4.06-5.63); WHITE BLOOD COUNT (AUTO) 4.1 K/uL (3.6-10.2)
[2020-02-10 09:41] LABS: CARBON DIOXIDE 30 mmol/L (21-32); CHLORIDE 113 mmol/L (98-107); CREATININE 3.5 mg/dL (0.6-1.3); GLUCOSE 105 mg/dL (74-106); MAGNESIUM 2.5 mg/dL (1.8-2.4); PHOSPHOROUS 4.2 mg/dL (2.5-4.9); POTASSIUM 3.7 mmol/L (3.5-5.1); UREA NITROGEN, BLOOD 75 mg/dL (7-18)
--- NOTE | 2020-02-10 10:00 | NUR ---
DR TRINIDAD IN THE UNIT TO SEE PATIENT. UPDATED WITH REPORT. PENDING REPEAT COVID TEST. REQUIRES DEEP SUCTIONING AND HAS THICK SECRETIONS ALSO IS ABLE TO COUGH UP. FEVER LAST NIGHT NONE TODAY
[2020-02-10 10:01] VITALS: BP 112/70
--- NOTE | 2020-02-10 11:34 | NUR ---
PHARMACY CLINICAL NOTES (VANCOMYCIN DOSING): S: To continue vanco dosing for this 79 YO male on dialysis, with DX of Severe sepsis with septic shock d/t COVID-19 infection with pneumonia; Acute hypoxic respiratory failure, s/p intubation 01/22/2020. O: BUN/SCR 75/3.5 WBC 4.1 Temp 99.2 Vancomycin random (Pre-HD level) on 01/28 at 0445:18.6 Vancomycin random (Pre-HD level) on 01/29 with am labs:17.6 (pre-HD) Vancomycin random (Pre-HD level) on 01/31 with am labs:16.9 (pre-HD) Vancomycin random (Pre-HD level) on 02/02 with am labs: 17.4 Vancomycin random (Pre-HD level) on 02/03 with am labs: 21.5 Vancomycin random (pre-HD level) on 02/05 with am labs:14.1 Vancomycin random (pre-HD level) on 02/08 with am labs:17.5 A/P: Per HD nurse, no HD will be done today, so no dose shall be given per protocol. Last dose of Vancomycin was given yesterday at 1326(500mg x1). Will continue to follow HD schedule daily for further dosing per protocol.
[2020-02-10 13:38] VITALS: BP 118/67
[2020-02-10 15:56] VITALS: BP 123/55
--- NOTE | 2020-02-10 16:00 | NUR ---
DOCTOR KB IN THE UNIT TO SEE PATIENT. UPDATED ABOUT PATIENT.
--- NOTE | 2020-02-10 17:00 | NUR ---
NIKO KHOURY IN THE UNIT. REPORTED NO FEVERS TODAY ONLY LAST NIGHT HAD FEVER.
[2020-02-10 20:39] VITALS: BP 130/64
[2020-02-11] MEDS: NEPRO (VANILLA) 237 ML CAN NG SCH ×4 (00:38→17:13)
[2020-02-11 01:02] VITALS: BP 129/67
[2020-02-11 05:35] VITALS: BP 119/60
[2020-02-11] MEDS: METOCLOPRAMIDE HCL 10 MG/2 ML VIAL IV SCH ×3 (05:44→21:22)
--- NOTE | 2020-02-11 05:58 | NUR ---
patient slept intermittently. no s/s of acute distress and v/s stable. afebrile at this time. tylenol administered once for 100.5 fever at beginning of shift. Nephro tolerated well. NG tube patient and intact. will continue to monitor and continue plan of care.
[2020-02-11 06:18] LABS: CARBON DIOXIDE 28 mmol/L (21-32); CHLORIDE 115 mmol/L (98-107); CREATININE 3.5 mg/dL (0.6-1.3); GLUCOSE 112 mg/dL (74-106); MAGNESIUM 2.6 mg/dL (1.8-2.4); PHOSPHOROUS 4.3 mg/dL (2.5-4.9); POTASSIUM 3.5 mmol/L (3.5-5.1)
[2020-02-11 06:22] LABS: EOSINOPHILS # (AUTO) 0.1 K/uL (0.0-0.7); MONOCYTES # (AUTO) 0.4 K/uL (2.0-10.0); UREA NITROGEN, BLOOD 88 mg/dL (7-18)
[2020-02-11 06:27] LABS: BASOPHILS # (AUTO) 0.1 K/uL (0.0-8.0); BASOPHILS % (AUTO) 1.5 % (0.0-2.0); EOSINOPHILS % (AUTO) 3.8 % (0.0-7.0); HEMATOCRIT 26.9 % (36.7-47.1); HEMOGLOBIN 8.6 g/dL (12.5-16.3); LYMPHOCYTES # (AUTO) 0.8 K/uL (20.0-40.0); LYMPHOCYTES % (AUTO) 22.6 % (20.5-51.5); MEAN CORPUSCULAR HEMOGLOBIN 29.3 uug (23.8-33.4); MEAN CORPUSCULAR HGB CONC 32 g/dL (32.5-36.3); MEAN CORPUSCULAR VOLUME 91.3 fL (73.0-96.2); MONOCYTES % (AUTO) 9.6 % (0.0-11.0); NEUTROPHILS # (AUTO) 2.3 K/uL (1.8-8.9); NEUTROPHILS % (AUTO) 62.5 % (38.5-71.5); PLATELET COUNT (AUTO) 122 K/uL (152-348); RED BLOOD CELL COUNT(AUTO) 2.94 MIL/uL (4.06-5.63); WHITE BLOOD COUNT (AUTO) 3.6 K/uL (3.6-10.2)
--- NOTE | 2020-02-11 07:25 | NUR ---
contacted cafeteria at 6am for nephro. no answer. called at 0630 for nephro and reported they will bring up. still not here. endorsed to morning nurse. to administer.
[2020-02-11] MEDS: ASPIRIN 81 MG TAB.CHEW PO SCH (08:47)
[2020-02-11] MEDS: AMIODARONE HCL 200 MG TABLET PO SCH (08:47)
[2020-02-11] MEDS: FAMOTIDINE 20 MG TABLET GT SCH (08:47)
[2020-02-11] MEDS: PROTEIN SUPPLEMENT (PROSTAT) 30 ML LIQUID PO SCH ×3 (08:47→16:29)
[2020-02-11] MEDS: SEVELAMER CARBONATE 800 MG POWD.PACK NG SCH ×3 (08:47→16:28)
--- NOTE | 2020-02-11 09:45 | NUR ---
REPORT GIVEN TO TANJA, PATIENT TRANSFERRED BACK TO [facility] DUE TO PENDING SECOND TEST. PATIENT HAS NG IN NARES, NO RESIDUAL TOLERATED TUBE FEEDING. NO DISTRESS NOTED AT TIME OF TRANSFER, ALL NEEDS MET.
--- NOTE | 2020-02-11 09:50 | NUR ---
RECEIVED REPORT FROM DIMAS, PATIENT TRANSFERRED BACK TO [facility] ROOM 324 DUE TO PENDING SECOND TEST. PATIENT HAS NG TUBE IN NARES, . NO DISTRESS NOTED AT TIME OF TRANSFER, WILL CONTINUE TO MONITOR.
--- NOTE | 2020-02-11 10:22 | NUR ---
PHARMACY CLINICAL NOTES (VANCOMYCIN DOSING): S: To continue vanco dosing for this 79 YO male on dialysis, with DX of Severe sepsis with septic shock d/t COVID-19 infection with pneumonia; Acute hypoxic respiratory failure, s/p intubation 01/22/2020. O: BUN/SCR 88/3.5 WBC 3.6 Temp 98.2 Vancomycin random (Pre-HD level) on 01/28 at 0445:18.6 Vancomycin random (Pre-HD level) on 01/29 with am labs:17.6 (pre-HD) Vancomycin random (Pre-HD level) on 01/31 with am labs:16.9 (pre-HD) Vancomycin random (Pre-HD level) on 02/02 with am labs: 17.4 Vancomycin random (Pre-HD level) on 02/03 with am labs: 21.5 Vancomycin random (pre-HD level) on 02/05 with am labs:14.1 Vancomycin random (pre-HD level) on 02/08 with am labs:17.5 Vancomycin random (pre-HD level) on 02/10 with am labs: 10.4 A/P: HD due today, thus per pre-HD level today, will dose another 1gm vanco post-HD today. Will continue to follow HD schedule for further dosing. Will monitor
--- NOTE | 2020-02-11 11:30 | NUR ---
patient started dialysis
[2020-02-11 12:00] VITALS: BP 118/69
--- NOTE | 2020-02-11 13:35 | NUR ---
DIALYSIS ENDED AND REMOVED 1.5 LITERS ( 1500ml).
[2020-02-11 16:00] VITALS: BP 115/61
[2020-02-11] MEDS ORDERED: VANCOMYCIN IV 1,000 MG in IV DEXTROSE 5% 250 ML IV ONE (17:00)
--- NOTE | 2020-02-11 18:00 | NUR ---
Patient on droplet/contact isolation for COVID 19. Patient in bed with HOB elevated with no signs of distress noted. No c/o pain or discomfort. Afebrile. patient on NGT in the right nares on tube feeding with nephro 1 can q6hr.. Kept clean and comfortable. Galicia catheter draining. will continue to monitor.
[2020-02-11 21:40] VITALS: BP 131/71
[2020-02-12] MEDS: NEPRO (VANILLA) 237 ML CAN NG SCH ×5 (00:45→23:46)
[2020-02-12 01:03] VITALS: BP 129/75
--- NOTE | 2020-02-12 04:59 | NUR ---
Patient maintained on droplet/contact isolation. Patient sleeping comfortably in bed with HOB elevated at 35 degrees. No signs of acute respiratory distress noted. Afebrile. Patient has NGT in the right nare with bolus tube feeding of nephro 1 can q6hr. Patient given mouth care and suctioned multiple times throughout the shift. Galicia catheter in situ and draining. Will continue to monitor.
[2020-02-12 05:21] VITALS: BP 127/57
[2020-02-12] MEDS: METOCLOPRAMIDE HCL 10 MG/2 ML VIAL IV SCH ×3 (05:45→21:45)
[2020-02-12 07:05] LABS: CARBON DIOXIDE 27 mmol/L (21-32); CHLORIDE 116 mmol/L (98-107); CREATININE 2.9 mg/dL (0.6-1.3); GLUCOSE 121 mg/dL (74-106); MAGNESIUM 2.4 mg/dL (1.8-2.4); PHOSPHOROUS 3.7 mg/dL (2.5-4.9); POTASSIUM 4.5 mmol/L (3.5-5.1); UREA NITROGEN, BLOOD 68 mg/dL (7-18)
[2020-02-12 07:09] LABS: BASOPHILS # (AUTO) 0.1 K/uL (0.0-8.0); EOSINOPHILS # (AUTO) 0.1 K/uL (0.0-0.7); HEMATOCRIT 28.6 % (36.7-47.1); HEMOGLOBIN 9.2 g/dL (12.5-16.3); LYMPHOCYTES # (AUTO) 0.9 K/uL (20.0-40.0); MONOCYTES # (AUTO) 0.5 K/uL (2.0-10.0)
[2020-02-12] MEDS: ACETAMINOPHEN 650 MG/20.3 ML LIQUID UDC NG PRN ×3 (07:11→21:45)
[2020-02-12 07:25] LABS: BASOPHILS % (AUTO) 0.9 % (0.0-2.0); EOSINOPHILS % (AUTO) 2.2 % (0.0-7.0); LYMPHOCYTES % (AUTO) 14.6 % (20.5-51.5); MEAN CORPUSCULAR HEMOGLOBIN 29.7 uug (23.8-33.4); MEAN CORPUSCULAR HGB CONC 32 g/dL (32.5-36.3); MONOCYTES % (AUTO) 7.5 % (0.0-11.0); NEUTROPHILS # (AUTO) 4.8 K/uL (1.8-8.9); NEUTROPHILS % (AUTO) 74.8 % (38.5-71.5); PLATELET COUNT (AUTO) 142 K/uL (152-348); RED BLOOD CELL COUNT(AUTO) 3.11 MIL/uL (4.06-5.63)
[2020-02-12 07:28] LABS: WHITE BLOOD COUNT (AUTO) 6.4 K/uL (3.6-10.2)
[2020-02-12] MEDS ORDERED: AMIODARONE HCL 200 MG TABLET PO SCH (09:00)
[2020-02-12] MEDS: PROTEIN SUPPLEMENT (PROSTAT) 30 ML LIQUID PO SCH ×3 (09:24→17:48)
[2020-02-12] MEDS: SEVELAMER CARBONATE 800 MG POWD.PACK NG SCH ×3 (09:24→17:48)
[2020-02-12] MEDS: ASPIRIN 81 MG TAB.CHEW PO SCH (09:24)
[2020-02-12] MEDS: FAMOTIDINE 20 MG TABLET GT SCH (09:24)
[2020-02-12 11:30] VITALS: BP 128/74
--- NOTE | 2020-02-12 13:24 | NUR ---
PHARMACY CLINICAL NOTES (VANCOMYCIN DOSING): S: To continue vanco dosing for this 79 YO male on dialysis, with DX of Severe sepsis with septic shock d/t COVID-19 infection with pneumonia; Acute hypoxic respiratory failure, s/p intubation 01/22/2020. O: BUN/SCR 68/2.9 WBC 6.4 Temp 101.5 Vancomycin random (Pre-HD level) on 01/28 at 0445:18.6 Vancomycin random (Pre-HD level) on 01/29 with am labs:17.6 (pre-HD) Vancomycin random (Pre-HD level) on 01/31 with am labs:16.9 (pre-HD) Vancomycin random (Pre-HD level) on 02/02 with am labs: 17.4 Vancomycin random (Pre-HD level) on 02/03 with am labs: 21.5 Vancomycin random (pre-HD level) on 02/05 with am labs:14.1 Vancomycin random (pre-HD level) on 02/08 with am labs:17.5 Vancomycin random (pre-HD level) on 02/10 with am labs: 10.4 A/P: As no HD today, no further dose for today per protocol. Last vanco dose 1gm given 02/10 post-HD. Will continue to follow HD schedule for further dosing.
[2020-02-12 15:56] LABS: *BILIRUBIN,URIN NEGATIVE (NEGATIVE); *BLOOD, URINE 1+ (NEGATIVE); *CLARITY,URINE CLEAR (CLEAR); *COLOR,URINE YELLOW (YELLOW); *KETONES,URINE NEGATIVE (NEGATIVE); *UROBILINOGEN,URINE 0.2 E.U./dl (NORMAL); LEUKOCYTE ESTERASE ,URINE NEGATIVE (NEGATIVE); NITRITE, URINE NEGATIVE (NEGATIVE); PH,URINE 5.5 (5.0-8.0); UGLUCOSE NEGATIVE (NEGATIVE)
[2020-02-12 15:59] LABS: BACTERIA,URINE NONE SEEN /HPF (NONE SEEN); SQUAMOUS EPITHELIAL CELL,UR FEW /HPF (NONE SEEN); WBC,URINE 0-3 /HPF (0-3)
[2020-02-12 16:00] VITALS: BP 137/77
--- NOTE | 2020-02-12 19:28 | NUR ---
rPatient on droplet/contact isolation for COVID 19. Patient in bed with HOB elevated .No signs of distress noted, room air. No c/o pain or discomfort. Afebrile. Kept clean and comfortable. will continue to monitor.
[2020-02-12 20:45] VITALS: BP 122/84
[2020-02-12] MEDS ORDERED: METOPROLOL TARTRATE 25 MG TABLET PO SCH (21:00)
[2020-02-12] MEDS: METOPROLOL TARTRATE 25 MG TABLET NG SCH (21:52)
[2020-02-13] VITALS: BP 96/54
[2020-02-13 04:00] VITALS: BP 110/57
[2020-02-13] MEDS: METOCLOPRAMIDE HCL 10 MG/2 ML VIAL IV SCH ×2 (05:35→13:29)
[2020-02-13] MEDS: NEPRO (VANILLA) 237 ML CAN NG SCH ×3 (05:35→17:17)
--- NOTE | 2020-02-13 06:58 | NUR ---
Patient slept the whole night. Arousable to touch. ST on Tele monitor w/ PVCs. NGT intact and patent. Nephro bolus administered via NGT, tolerated well. Oral care and suction done. F/C intact and draining clear yellow urine. Turned and repositioned Q2. Will endorse accordingly
[2020-02-13 07:22] LABS: BASOPHILS % (AUTO) 0.8 % (0.0-2.0); EOSINOPHILS % (AUTO) 0.3 % (0.0-7.0); HEMATOCRIT 27.2 % (36.7-47.1); HEMOGLOBIN 8.7 g/dL (12.5-16.3); LYMPHOCYTES # (AUTO) 0.7 K/uL (20.0-40.0); LYMPHOCYTES % (AUTO) 11.4 % (20.5-51.5); MEAN CORPUSCULAR HEMOGLOBIN 29.6 uug (23.8-33.4); MEAN CORPUSCULAR HGB CONC 32 g/dL (32.5-36.3); MEAN CORPUSCULAR VOLUME 92.9 fL (73.0-96.2); MONOCYTES # (AUTO) 0.5 K/uL (2.0-10.0); MONOCYTES % (AUTO) 7.9 % (0.0-11.0); NEUTROPHILS # (AUTO) 5.1 K/uL (1.8-8.9); NEUTROPHILS % (AUTO) 79.6 % (38.5-71.5); PLATELET COUNT (AUTO) 120 K/uL (152-348); RED BLOOD CELL COUNT(AUTO) 2.93 MIL/uL (4.06-5.63); WHITE BLOOD COUNT (AUTO) 6.5 K/uL (3.6-10.2)
[2020-02-13 07:32] LABS: ALANINE AMINOTRANSFERASE 100 U/L (16-63); ALKALINE PHOSPHATASE 170 U/L (50-136); ASPARTATE AMINOTRANSFERASE 88 U/L (15-37); BILIRUBIN,TOTAL 0.5 mg/dL (0.2-1.0); CARBON DIOXIDE 27 mmol/L (21-32); CHLORIDE 122 mmol/L (98-107); GLUCOSE 169 mg/dL (74-106); MAGNESIUM 2.6 mg/dL (1.8-2.4); PHOSPHOROUS 3.2 mg/dL (2.5-4.9); POTASSIUM 4.1 mmol/L (3.5-5.1)
[2020-02-13 08:15] LABS: UREA NITROGEN, BLOOD 87 mg/dL (7-18)
[2020-02-13] MEDS: PROTEIN SUPPLEMENT (PROSTAT) 30 ML LIQUID PO SCH ×3 (08:38→16:54)
[2020-02-13] MEDS: SEVELAMER CARBONATE 800 MG POWD.PACK NG SCH ×3 (08:40→16:54)
[2020-02-13] MEDS: FAMOTIDINE 20 MG TABLET GT SCH (08:41)
[2020-02-13] MEDS: ASPIRIN 81 MG TAB.CHEW PO SCH (08:41)
[2020-02-13] MEDS ORDERED: ALTEPLASE 2 MG VIAL IVP ONE (08:45)
[2020-02-13] MEDS: METOPROLOL TARTRATE 25 MG TABLET NG SCH (08:50)
[2020-02-13] MEDS ORDERED: METOPROLOL TARTRATE 25 MG TABLET NG SCH (09:00)
--- NOTE | 2020-02-13 13:20 | NUR ---
PHARMACY CLINICAL NOTES (VANCOMYCIN DOSING): S: To continue vanco dosing for this 79 YO male on dialysis, with DX of Severe sepsis with septic shock d/t COVID-19 infection with pneumonia; Acute hypoxic respiratory failure, s/p intubation 01/22/2020. O: BUN/SCR 87/4.0 WBC 6.5 Temp 98.5 Vancomycin random (Pre-HD level) on 01/28 at 0445:18.6 Vancomycin random (Pre-HD level) on 01/29 with am labs:17.6 (pre-HD) Vancomycin random (Pre-HD level) on 01/31 with am labs:16.9 (pre-HD) Vancomycin random (Pre-HD level) on 02/02 with am labs: 17.4 Vancomycin random (Pre-HD level) on 02/03 with am labs: 21.5 Vancomycin random (pre-HD level) on 02/05 with am labs:14.1 Vancomycin random (pre-HD level) on 02/08 with am labs:17.5 Vancomycin random (pre-HD level) on 02/10 with am labs: 10.4 Vancomycin random (pre-HD level) on 02/12 with am labs:10.1 A/P: Since patient was dialyzed today, will administer 1 gram post HD per protocol. Will follow HD schedule daily to dose per pre-HD level. Will monitor daily.
--- NOTE | 2020-02-13 13:30 | NUR ---
Report received from Xuan Garza as reported by rn and case management patient awaiting arrival of a daughter from [place] to be placed on comfort measures. As of now patient on telemetry with heart rate of 126 on continuous monitoring on RA physicist solid earth aware.
--- NOTE | 2020-02-13 13:37 | NUR ---
Patient spiked fever of 102.8 ; attending md expressed patient may still be COVID positive due to infectious process in lungs vs. nares . therefore expressing a false negative;patient will be placed on morphine drip as soon as daughter has arrived from [place] per case management.Report given to [facility] nurse bella .
[2020-02-13] MEDS: ACETAMINOPHEN 650 MG/20.3 ML LIQUID UDC NG PRN (14:38)
[2020-02-13] MEDS ORDERED: VANCOMYCIN IV 1,000 MG in IV DEXTROSE 5% 250 ML IV ONE (15:00)
[2020-02-13 16:00] VITALS: BP 101/53
--- NOTE | 2020-02-13 19:30 | NUR ---
Received patient asleep. Patient shows no signs or symptoms of distress at this time. Daughter coming from [place] to sign no code/comfort measures for POLST. Will continue to monitor patient.
--- NOTE | 2020-02-13 20:15 | NUR ---
Daughter, Dave, at bedside and was approved by [facility]. Dave did not feel comfortable signing the no code status for patient. All family is agreeable to having patient as DNR/DNI. Arielle, eldest daughter to make final decision. Called and spoke to Arielle. Received verbal telephone consent from Arielle that patient may be placed on DNR/DNI. Charge nurse, Madhuri RN and Fahad RN received telephone consent. Dr. Jones notified of consent. Dr. Collazo also notified. Awaiting Dr. Collazo's response. Will continue to monitor patient.
[2020-02-13 20:30] VITALS: BP 88/47
[2020-02-13] MEDS: MORPHINE SULFATE PF IV DRIP 100 MG in IV DEXTROSE 5% 96 ML IV PRN (21:50)
--- NOTE | 2020-02-13 22:02 | NUR ---
Morphine drip started as per MD order. Will continue to monitor patient.
--- NOTE | 2020-02-14 06:31 | NUR ---
Patient shows no signs or symptoms of distress at this time. Morphine drip running for comfort measures. No fever noted throughout the manufacturing supervisor 2nd shift. Will endorse patient to day shift nurse.
--- NOTE | 2020-02-14 10:30 | NUR ---
Received patient resting comfortably on morphine drip. Safety measures provided. bed in lowest position, side rails up x2, will continue to monitor.
[2020-02-14] MEDS: MORPHINE SULFATE PF IV DRIP 100 MG in IV DEXTROSE 5% 96 ML IV PRN (10:49)
[2020-02-14 11:58] VITALS: BP 63/19
--- NOTE | 2020-02-14 14:10 | NUR ---
Patient apneic for 5 minutes. Pupils fixed and dilated. No audible raygoza tones, breath sounds for 1 minute. No palpable pulses for 1 minute. No corneal reflexes. Patient pronounced at 1410. Physician Dr[address] Yoder notified. [employer] called case #[id number]. Family informed.
== END 2020-02-14 14:10 | disposition expired | DRG 870 ==
LOC: ER 09:29 → CCU 11:21 → TELE3 02-07 16:26 → MEDSURG3 02-14 11:38
PROVIDERS: ADMIT Nurse Practitioner Acute Care
PROC: 5A1955Z Respiratory Ventilation, Greater than 96 Consecutive Hours (ICD-10-PCS; principal; 2020-01-22)
PROC: 0BH17EZ Insertion of Endotracheal Airway into Trachea, Via Natural or Artificial Opening (ICD-10-PCS; 2020-01-22)
PROC: 06HY33Z Insertion of Infusion Device into Lower Vein, Percutaneous Approach (ICD-10-PCS; 2020-01-22)
PROC: 06HY33Z Insertion of Infusion Device into Lower Vein, Percutaneous Approach (ICD-10-PCS; 2020-01-26)
PROC: 5A1D70Z Performance of Urinary Filtration, Intermittent, Less than 6 Hours Per Day (ICD-10-PCS; 2020-01-26)
DX: A41.89 Other specified sepsis (principal); U07.1 COVID-19; J12.89 Other viral pneumonia; R65.21 Severe sepsis with septic shock; J96.01 Acute respiratory failure with hypoxia; I21.A1 Myocardial infarction type 2; N17.0 Acute kidney failure with tubular necrosis; E43 Unspecified severe protein-calorie malnutrition; G92 Toxic encephalopathy; J69.0 Pneumonitis due to inhalation of food and vomit; J96.02 Acute respiratory failure with hypercapnia; K72.00 Acute and subacute hepatic failure without coma; D68.69 Other thrombophilia; E87.0 Hyperosmolality and hypernatremia; E87.2 Acidosis; J98.11 Atelectasis; Z51.5 Encounter for palliative care; R74.0 Nonspecific elevation of levels of transaminase and lactic acid dehydrogenase [LDH]; D64.9 Anemia, unspecified; D69.6 Thrombocytopenia, unspecified; D72.819 Decreased white blood cell count, unspecified; E55.9 Vitamin D deficiency, unspecified; E87.5 Hyperkalemia; F03.90 Unspecified dementia, unspecified severity, without behavioral disturbance, psychotic disturbance, mood disturbance, and anxiety; F25.0 Schizoaffective disorder, bipolar type; I25.10 Atherosclerotic heart disease of native coronary artery without angina pectoris; I48.0 Paroxysmal atrial fibrillation; R13.10 Dysphagia, unspecified; Z79.82 Long term (current) use of aspirin; Z79.01 Long term (current) use of anticoagulants; Z95.1 Presence of aortocoronary bypass graft; Z87.891 Personal history of nicotine dependence; Z68.28 Body mass index [BMI] 28.0-28.9, adult; J45.909 Unspecified asthma, uncomplicated; I11.0 Hypertensive heart disease with heart failure; I50.9 Heart failure, unspecified; R91.8 Other nonspecific abnormal finding of lung field; R73.03 Prediabetes; Z88.8 Allergy status to other drugs, medicaments and biological substances; F41.9 Anxiety disorder, unspecified
CPT/HCPCS: 36415; 36600; 70030-TC; 71045; 74018; 83605; 83615; 83735; 84100; 84156; 84300; 84443; 84478; 85025; 85730; 86140; 86705; 86706; 86709; 86803; 87040; 87070; 87077; 87086; 87340; 87400; 87806; 90937; 93005; 93307; 94002; 94003; 94640; 94664; A4217; A4663; G0378; J0282; J0330; J0456; J0610; J0696; J1644; J1815; J2185; J2270; J2274; J2765; J2997; J3370; J3490; J3590; J7030; J7040; J7050; J7060; J7614; Q0144